=== PATIENT | male | born 1940 | race Caucasian/White ===

== ENCOUNTER 2022-08-20 06:26 | Day surgery (SDC) | payer MEDICARE, MEDICAID ==
[2022-08-20] VITALS (7 sets, daily range): BP systolic 101–123; BP diastolic 52–85
[~2022-08-20] VITALS: Ht 177.8 cm; Wt 117.9 kg
[2022-08-20] MEDS ORDERED: LOSA25TA41 PO (07:08)
[2022-08-20] MEDS ORDERED: METO25TA6 PO (07:08)
[2022-08-20] MEDS ORDERED: APIX5TAB3 PO (07:08)
[2022-08-20] MEDS ORDERED: NITR0.4T48 (07:08)
[2022-08-20] MEDS ORDERED: POTA8CAP20 PO (07:08)
[2022-08-20] MEDS ORDERED: METF-438 PO (07:08)
[2022-08-20] MEDS ORDERED: LASIX PO (07:11)
[2022-08-20] MEDS ORDERED: VITAMIN D3 (07:11)
[2022-08-20] MEDS ORDERED: CYANOCOBALAMIN (07:11)
[2022-08-20 07:37] LABS: BASOPHILS % (AUTO) 0.6 % (0-1); EOSINOPHILS # (AUTO) 0.2 X10'3 (0-0.9); EOSINOPHILS % (AUTO) 2.2 % (0-6); HEMATOCRIT 42.4 % (42.0-52.0); HEMOGLOBIN 14.1 g/dl (14.0-17.9); LYMPHOCYTES # (AUTO) 0.9 X10'3 (1.1-4.8); LYMPHOCYTES % (AUTO) 13.2 % (21-51); MEAN CORPUSCULAR HEMOGLOBIN 36.3 PG (27.0-31.0); MEAN CORPUSCULAR HGB CONC 33.3 g/dL (33.0-36.5); MEAN CORPUSCULAR VOLUME 108.9 FL (78-98); MEAN PLATELET VOLUME 7.5 FL (7.4-10.4); MONOCYTES # (AUTO) 0.6 X10'3 (0-0.9); MONOCYTES % (AUTO) 8.9 % (2-12); NEUTROPHILS # (AUTO) 5.4 X10'3 (1.8-7.7); NEUTROPHILS % (AUTO) 75.1 % (42-75); PLATELET COUNT 169 X10'3 (140-440); RED BLOOD COUNT 3.89 X10'6 (4.70-6.10); RED CELL DISTRIBUTION WIDTH 14.8 % (11.5-14.5); WHITE BLOOD COUNT 7.2 X10'3 (4.5-11.0)
[2022-08-20 07:58] LABS: ALBUMIN 3.9 G/DL (3.4-5.0); ANION GAP 7 (8-16); BLOOD UREA NITROGEN 30 MG/DL (7-18); BUN/CREATININE RATIO 23.1 (10.0-20.0); CALCIUM 9.7 MG/DL (8.5-10.1); CHLORIDE 100 MMOL/L (99-107); GLUCOSE 99 MG/DL (70-104); MAGNESIUM 2.2 MG/DL (1.5-2.4); POTASSIUM 3.9 MMOL/L (3.5-5.1); SODIUM 140 MMOL/L (135-145); TOTAL CARBON DIOXIDE 33.5 MMOL/L (24-32); eGFR 53 ML/MIN
[2022-08-20] MEDS ORDERED: vancomycin 1,500 MG in NS 300ml IV soln IV ONE (08:00)
[2022-08-20] MEDS ORDERED: cefazolin 2gm/D5W 100mL 100 ML IV ONE (08:00)
[2022-08-20] MEDS ORDERED: midazolam 1 mg/ML 2ml injection ONE ×4 (08:32→10:22)
[2022-08-20] MEDS ORDERED: fentaNYL/PF 50MCG/1 ML 2ML syringe ONE (08:32)
[2022-08-20] MEDS ORDERED: vancomycin 1,000mg inj ONE ×2 (08:32→10:04)
[2022-08-20] MEDS ORDERED: LIDOCAINE 2%/EPI 1:100,000 inj. Multi-dose 20 ML VIAL ONE (08:32)
[2022-08-20] MEDS ORDERED: iohexol 350 MG/ML 50ML vial IV ONE ×3 (08:34→10:30)
[2022-08-20] MEDS ORDERED: flumazenil 0.1 mg/ml inj. IV ONE (10:28)
[2022-08-20] MEDS ORDERED: HYDROmorphone 1 mg/ml syringe ONE (10:32)
[2022-08-20] MEDS ORDERED: normal saline 1000ml 600 ML IV SCH (11:50)
== END 2022-08-20 13:40 | disposition home or self-care (01) ==
LOC: SSTAY O 06:26
PROVIDERS: ATTEND Internal Medicine Cardiovascular Disease
DX: Z45.010 Encounter for checking and testing of cardiac pacemaker pulse generator [battery] (principal); I42.0 Dilated cardiomyopathy; I44.2 Atrioventricular block, complete; I25.10 Atherosclerotic heart disease of native coronary artery without angina pectoris; I25.2 Old myocardial infarction; I48.20 Chronic atrial fibrillation, unspecified; I08.1 Rheumatic disorders of both mitral and tricuspid valves; I10 Essential (primary) hypertension; E78.5 Hyperlipidemia, unspecified; E11.9 Type 2 diabetes mellitus without complications; E66.9 Obesity, unspecified; Z68.37 Body mass index [BMI] 37.0-37.9, adult; Z79.899 Other long term (current) drug therapy
CPT/HCPCS: 33229; 36415; 80048; 82948; 83735; 85025; 85610; 93005; 99152; 99153; C1769; C2621; J1170; J2250; J3010; J3370; J3490; J7030; Q9967; 33228; A4615

== ENCOUNTER 2023-02-21 10:04 | Outpatient (CLI) | payer MEDICARE, MEDICAID ==
[~2023-02-21 10:04] MED LIST: APIX5TAB3 PO; ATOR10TA70 PO; FURO20TA4 PO; LOSA25TA41 PO; METF-438 PO; METO25TA6 PO; NITR0.4T48; POTA8CAP20 PO; VITAMIN B12; VITAMIN D3
[2023-02-21 11:09] LABS: APTT 31 SECONDS (22-32); INR 1.2 INR; PROTHROMBIN TIME 12.4 SECONDS (9.0-12.0)
[2023-02-21 11:11] LABS: ALANINE AMINOTRANSFERASE 14 U/L (12-78); ALBUMIN 3.9 G/DL (3.4-5.0); ALBUMIN/GLOBULIN RATIO 0.9 (1.1-1.5); ALKALINE PHOSPHATASE 60 IU/L (46-116); ANION GAP 9 (8-16); ASPARTATE AMINO TRANSFERASE 20 U/L (10-37); BASOPHILS % (AUTO) 0.4 % (0-1); BILIRUBIN,TOTAL 1.4 MG/DL (0.1-1.0); BLOOD UREA NITROGEN 39 MG/DL (7-18); BUN/CREATININE RATIO 30.5 (10.0-20.0); CALCIUM 9.5 MG/DL (8.5-10.1); CHLORIDE 103 MMOL/L (99-107); CREATININE 1.28 MG/DL (0.60-1.10); EOSINOPHILS # (AUTO) 0.1 X10'3 (0-0.9); EOSINOPHILS % (AUTO) 1.4 % (0-6); GLUCOSE 141 MG/DL (70-104); HEMATOCRIT 43.6 % (42.0-52.0); HEMOGLOBIN 14.5 g/dl (14.0-17.9); LYMPHOCYTES # (AUTO) 0.8 X10'3 (1.1-4.8); MEAN CORPUSCULAR HEMOGLOBIN 36.4 PG (27.0-31.0); MEAN CORPUSCULAR HGB CONC 33.3 g/dL (33.0-36.5); MEAN CORPUSCULAR VOLUME 109.2 FL (78-98); MEAN PLATELET VOLUME 7.7 FL (7.4-10.4); MONOCYTES # (AUTO) 0.6 X10'3 (0-0.9); MONOCYTES % (AUTO) 9.1 % (2-12); NEUTROPHILS # (AUTO) 5.4 X10'3 (1.8-7.7); NEUTROPHILS % (AUTO) 78.1 % (42-75); PLATELET COUNT 198 X10'3 (140-440); POTASSIUM 3.8 MMOL/L (3.5-5.1); RED BLOOD COUNT 3.99 X10'6 (4.70-6.10); RED CELL DISTRIBUTION WIDTH 14.5 % (11.5-14.5); SODIUM 142 MMOL/L (135-145); TOTAL PROTEIN 8.3 G/DL (6.4-8.2); eGFR 54 ML/MIN
[2023-04-11] MEDS ORDERED: FURO-150 PO (09:57)
[2023-04-17] MEDS ORDERED: METO-395 PO (12:42)
[2023-04-17] MEDS ORDERED: CYAN-104 PO (12:46)
[2023-04-17] MEDS ORDERED: CHOL200012 PO (12:46)
[2023-04-18] MEDS ORDERED: NITR0.4T51 SL (06:54)
== END 2023-02-21 23:59 | disposition home or self-care (01) ==
LOC: VAS 10:04
PROVIDERS: ATTEND Internal Medicine Cardiovascular Disease
DX: I51.7 Cardiomegaly (principal); R09.89 Other specified symptoms and signs involving the circulatory and respiratory systems; I35.0 Nonrheumatic aortic (valve) stenosis; R06.02 Shortness of breath; I65.29 Occlusion and stenosis of unspecified carotid artery; Z95.1 Presence of aortocoronary bypass graft
CPT/HCPCS: 36415; 71046; 71275; 74174; 75572; 80053; 85025; 85610; 85730; 93880

== ENCOUNTER 2023-05-01 13:12 | Inpatient (IN) | payer MEDICARE, MEDICAID ==
[~2023-05-01] VITALS: Ht 177.8 cm; Wt 105.4 kg
[~2023-05-01 13:12] MED LIST changes: +CHOL200012 PO; +CYAN-104 PO; +FURO-150 PO; -FURO20TA4 PO; +METO-395 PO; -METO25TA6 PO; -NITR0.4T48; +NITR0.4T51 SL; -VITAMIN B12; -VITAMIN D3
[2023-05-01 13:45] LABS: BASOPHILS # (AUTO) 0.1 X10'3 (0-0.2); BASOPHILS % (AUTO) 0.9 % (0-1); EOSINOPHILS # (AUTO) 0.1 X10'3 (0-0.9); EOSINOPHILS % (AUTO) 1.4 % (0-6); HEMATOCRIT 41.3 % (42.0-52.0); HEMOGLOBIN 13.6 g/dl (14.0-17.9); LYMPHOCYTES # (AUTO) 0.8 X10'3 (1.1-4.8); LYMPHOCYTES % (AUTO) 9.1 % (21-51); MEAN CORPUSCULAR HEMOGLOBIN 36.5 PG (27.0-31.0); MEAN CORPUSCULAR HGB CONC 32.9 g/dL (33.0-36.5); MEAN PLATELET VOLUME 10.3 FL (7.4-10.4); MONOCYTES # (AUTO) 0.5 X10'3 (0-0.9); MONOCYTES % (AUTO) 6.4 % (2-12); NEUTROPHILS % (AUTO) 82.2 % (42-75); PLATELET COUNT 85 X10'3 (140-440); RED BLOOD COUNT 3.72 X10'6 (4.70-6.10); RED CELL DISTRIBUTION WIDTH 14.7 % (11.5-14.5); WHITE BLOOD COUNT 8.5 X10'3 (4.5-11.0)
[2023-05-01 14:02] LABS: ALANINE AMINOTRANSFERASE 11 U/L (12-78); ALBUMIN 3.4 G/DL (3.4-5.0); ALBUMIN/GLOBULIN RATIO 0.8 (1.1-1.5); ALKALINE PHOSPHATASE 60 IU/L (46-116); ANION GAP 7 (8-16); ASPARTATE AMINO TRANSFERASE 47 U/L (10-37); BLOOD UREA NITROGEN 68 MG/DL (7-18); BUN/CREATININE RATIO 46.9 (10.0-20.0); CALCIUM 9.2 MG/DL (8.5-10.1); CHLORIDE 102 MMOL/L (99-107); CREATININE 1.45 MG/DL (0.60-1.10); GLUCOSE 100 MG/DL (70-104); SODIUM 140 MMOL/L (135-145); TOTAL PROTEIN 7.6 G/DL (6.4-8.2); eCRCL 42 ML/MIN; eGFR 47 ML/MIN
[2023-05-01 14:10] LABS: PRO BRAIN NATRIURETIC PEPTIDE 6092 PG/ML (0-450)
[2023-05-01 14:26] LABS: POTASSIUM 4.6 MMOL/L (3.5-5.1)
[2023-05-01] MEDS ORDERED: furosemide 10 MG/1 ML 10ml inj IV ONE (15:15)
[2023-05-01] MEDS ORDERED: furosemide inj 100 MG in normal saline 100ml IV soln 90 ML IV SCH (15:25)
[2023-05-01] MEDS ORDERED: mag hydrox/Alum hydrox/simeth 30ml oral suspension PO PRN (16:50)
[2023-05-01] MEDS ORDERED: ondansetron/PF 4mg/2ml inj IV PRN (16:50)
[2023-05-01] MEDS ORDERED: magnesium Cl slow-release 64mg tablet PO PRN (16:50)
[2023-05-01] MEDS ORDERED: potassium Cl 40MEQ/1/2NS 520ml 520 ML IV PRN (16:50)
[2023-05-01] MEDS ORDERED: morphine 2 MG/ML inj. syringe IV PRN ×2 (16:50)
[2023-05-01] MEDS ORDERED: magnesium 4gm in 100ml NS 100 ML IV PRN (16:50)
[2023-05-01] MEDS ORDERED: potassium Cl 20 mEq SR tablet PO PRN (16:50)
[2023-05-01] MEDS ORDERED: acetaminophen 325mg tablet PO PRN (16:50)
[2023-05-01] MEDS ORDERED: magnesium 2GM in 50ml NS 50 ML IV PRN (16:50)
[2023-05-01] MEDS: K and/or MAG REPLACEMENT MC SCH (21:09)
[2023-05-01] MEDS: docusate sod 100mg capsule PO SCH (21:09)
[2023-05-01] MEDS ORDERED: LIDOcaine 2% 10ml TOPICAL JELLY (Urojet) MM ONE (22:10)
[2023-05-01] MEDS ORDERED: LidoCAINE 2% Topical Jelly 11mL syringe MM ONE (22:15)
[2023-05-02] VITALS (35 sets, daily range): BP systolic 78–141; BP diastolic 32–70; PULSE 60–79; RESP 12–23; TEMP 97.6–98.4; O2SAT 82–99
[2023-05-02 01:46] LABS: ALANINE AMINOTRANSFERASE 17 U/L (12-78); ALBUMIN 3.2 G/DL (3.4-5.0); ALBUMIN/GLOBULIN RATIO 0.8 (1.1-1.5); ALKALINE PHOSPHATASE 58 IU/L (46-116); ANION GAP 6 (8-16); ASPARTATE AMINO TRANSFERASE 30 U/L (10-37); BILIRUBIN,TOTAL 1.8 MG/DL (0.1-1.0); BLOOD UREA NITROGEN 64 MG/DL (7-18); BUN/CREATININE RATIO 46.7 (10.0-20.0); CALCIUM 9.1 MG/DL (8.5-10.1); CHLORIDE 103 MMOL/L (99-107); CREATININE 1.37 MG/DL (0.60-1.10); GLUCOSE 136 MG/DL (70-104); POTASSIUM 4.3 MMOL/L (3.5-5.1); SODIUM 141 MMOL/L (135-145); TOTAL CARBON DIOXIDE 32.2 MMOL/L (24-32); TOTAL PROTEIN 7.1 G/DL (6.4-8.2); eCRCL 44 ML/MIN; eGFR 50 ML/MIN
[2023-05-02] MEDS ORDERED: furosemide inj 100 MG in normal saline 100ml IV soln 90 ML IV SCH (03:05)
[2023-05-02] MEDS ORDERED: furosemide inj 1,000 MG in normal saline 250ml IV soln 150 ML IV SCH (03:05)
[2023-05-02] MEDS: furosemide inj 100 MG in normal saline 100ml IV soln 90 ML IV SCH ×2 (04:02→11:27)
[2023-05-02 07:15] LABS: BASOPHILS % (AUTO) 0.3 % (0-1); EOSINOPHILS # (AUTO) 0.1 X10'3 (0-0.9); EOSINOPHILS % (AUTO) 1.5 % (0-6); HEMATOCRIT 39.9 % (42.0-52.0); HEMOGLOBIN 13.1 g/dl (14.0-17.9); LYMPHOCYTES # (AUTO) 0.7 X10'3 (1.1-4.8); MEAN CORPUSCULAR HEMOGLOBIN 36.1 PG (27.0-31.0); MEAN CORPUSCULAR HGB CONC 32.8 g/dL (33.0-36.5); MEAN CORPUSCULAR VOLUME 110.2 FL (78-98); MONOCYTES # (AUTO) 0.7 X10'3 (0-0.9); MONOCYTES % (AUTO) 8.3 % (2-12); NEUTROPHILS # (AUTO) 6.5 X10'3 (1.8-7.7); NEUTROPHILS % (AUTO) 80.9 % (42-75); PLATELET COUNT 81 X10'3 (140-440); RED BLOOD COUNT 3.62 X10'6 (4.70-6.10); RED CELL DISTRIBUTION WIDTH 14.9 % (11.5-14.5)
[2023-05-02 07:40] LABS: ALANINE AMINOTRANSFERASE 11 U/L (12-78); ALBUMIN 3.3 G/DL (3.4-5.0); ALBUMIN/GLOBULIN RATIO 0.8 (1.1-1.5); ALKALINE PHOSPHATASE 58 IU/L (46-116); ANION GAP 5 (8-16); ASPARTATE AMINO TRANSFERASE 33 U/L (10-37); BILIRUBIN,TOTAL 1.9 MG/DL (0.1-1.0); BLOOD UREA NITROGEN 64 MG/DL (7-18); BUN/CREATININE RATIO 48.9 (10.0-20.0); CALCIUM 9.4 MG/DL (8.5-10.1); CHLORIDE 102 MMOL/L (99-107); CHOL/HDL RATIO 2.2 (0.00-4.99); CHOLESTEROL 102 MG/DL (0-200); CREATININE 1.31 MG/DL (0.60-1.10); GLUCOSE 107 MG/DL (70-104); HDL CHOLESTEROL 47 MG/DL (35-60); LDL CHOLESTEROL 44 MG/DL (50-100); POTASSIUM 4.1 MMOL/L (3.5-5.1); PRO BRAIN NATRIURETIC PEPTIDE 6918 PG/ML (0-450); SODIUM 142 MMOL/L (135-145); TOTAL CARBON DIOXIDE 34.6 MMOL/L (24-32); TOTAL PROTEIN 7.4 G/DL (6.4-8.2); TRIGLYCERIDES 71 MG/DL (20-135); eCRCL 46 ML/MIN; eGFR 53 ML/MIN
[2023-05-02] MEDS: docusate sod 100mg capsule PO SCH ×2 (08:00→20:00)
[2023-05-02] MEDS: K and/or MAG REPLACEMENT MC SCH ×2 (08:00→20:00)
[2023-05-02] MEDS: folic acid 1mg tablet PO SCH (08:00)
[2023-05-02] MEDS ORDERED: labetalol 20mg/4ml (5mg/ml) syringe IV PRN (11:50)
[2023-05-02] MEDS ORDERED: LORazepam 2 mg/ml vial IV ONE (11:50)
[2023-05-02] MEDS ORDERED: acetaminophen 1,000mg/100ml IV 100 ML IV ONE (11:50)
[2023-05-02] MEDS ORDERED: proCHLORperazine 10 MG/2 ml inj IV PRN (11:50)
[2023-05-02] MEDS ORDERED: meperidine/PF 25mg/ml syringe IV PRN ×2 (11:50)
[2023-05-02] MEDS ORDERED: morphine 2 MG/ML inj. syringe IV PRN (11:50)
[2023-05-02] MEDS ORDERED: hydrALAZINE 20mg/ml inj. IV PRN (11:50)
[2023-05-02] MEDS ORDERED: morphine 4 MG/ML inj SYRINge IV PRN (11:50)
[2023-05-02] MEDS ORDERED: ringers solution, lacted 1,000 ML IV SCH (11:50)
[2023-05-02] MEDS ORDERED: ondansetron/PF 4mg/2ml inj IV PRN ×2 (11:50→16:30)
[2023-05-02] MEDS ORDERED: protamine sulfate 10mg/ml inj. ONE ×2 (12:54)
[2023-05-02] MEDS ORDERED: phenylephrine inj 50 MG in normal saline 250ml IV solN IV SCH (13:30)
[2023-05-02] MEDS ORDERED: nitroPRUSSIDE (NIPRIDE) (200MCG/ML) 100ML Drip IV SCH (13:30)
[2023-05-02] MEDS ORDERED: LIDOcaine 1% (10mg/ml) 2ml vial ONE (13:43)
[2023-05-02] MEDS ORDERED: protamine sulf. 10mg/ml inj. IV ONE (14:00)
[2023-05-02] MEDS ORDERED: LIDOcaine 1% 30ml preserv. free vial ONE (14:07)
[2023-05-02] MEDS ORDERED: heparin 1,000 UNITS/NS 500ml 1,500 ML ONE (14:07)
[2023-05-02] MEDS ORDERED: iohexol 350MG/ML 100ml bottle IV ONE (14:07)
[2023-05-02] MEDS ORDERED: sevoflurane 250ml liquid IH ONE (14:12)
[2023-05-02] MEDS ORDERED: hydrALAZINE 20mg/ml inj. IV ONE ×2 (14:12→16:21)
[2023-05-02] MEDS ORDERED: rocuronium 10mg/ml inj IV ONE ×2 (14:12→14:47)
[2023-05-02] MEDS ORDERED: midazolam 1 mg/ML 2ml injection ONE (14:45)
[2023-05-02] MEDS ORDERED: ceFAZolin 1000mg inj ONE ×2 (14:46)
[2023-05-02] MEDS ORDERED: 0.9 % SODIUM CHLORIDE 10 ML VIAL ONE ×3 (14:46→16:18)
[2023-05-02] MEDS ORDERED: vancomycin 1,000mg inj ONE ×2 (14:46→16:07)
[2023-05-02] MEDS ORDERED: ePHEDrine 50MG/ML INJ. ONE (14:46)
[2023-05-02] MEDS ORDERED: fentaNYL /PF 50mcg/ml 5ml ampule ONE (14:46)
[2023-05-02] MEDS ORDERED: heparin 1,000unit/ml 10ml vial 10 ML ONE (14:47)
[2023-05-02] MEDS ORDERED: propofol inj 20 ML IV ONE (14:47)
[2023-05-02] MEDS ORDERED: LIDOcaine 2% (20mg/ml) 5ml vial ONE (14:47)
[2023-05-02] MEDS ORDERED: dexamethasone sod phosphate 4mg/ml inj. ONE (14:58)
[2023-05-02] MEDS ORDERED: ondansetron/PF 4mg/2ml inj ONE (14:58)
[2023-05-02] MEDS ORDERED: sugammadex 200mg/2ml injection IV ONE (16:57)
[2023-05-02] MEDS: meperidine/PF 25mg/ml syringe IV PRN ×3 (17:00→19:24)
[2023-05-02 17:18] LABS: ABG BASE EXCESS 6.5 mmol/L (-2.0-2.0); ABG HCO3 32.8 mmol/L (22.0-26.0); ABG PCO2 (T) 53.6 mmHg (35.0-48.0); ABG PH (T) 7.404 (7.340-7.440); ABG PO2 (T) 66.3 mmHg (75.0-100.0); FCOHb 1.5 % (0.0-3.9); FHHb 5.9 % (0.0-5.0); FMetHb 0.3 % (0.0-1.5); FO2Hb 92.3 % (94-97); MODE VENT - SIMV; PATIENT TEMPERATURE 36.6; PEEP 5 cm H2O; RESPIRATORY RATE 8 b/min; TIDAL VOLUME 600 mL; TOTAL HEMOGLOBIN 13.7 G/dl (14.0-17.9)
[2023-05-02] MEDS ORDERED: propofol 1000mg/100ml bottle 100 ML IV ONE (17:32)
[2023-05-02] MEDS: propofol 1000mg/100ml bottle 100 ML IV SCH (17:51)
[2023-05-02] MEDS ORDERED: LidoCAINE 2% Topical Jelly 11mL syringe TOP ONE (18:50)
[2023-05-02 22:34] LABS: ALBUMIN 2.9 G/DL (3.4-5.0); ANION GAP 4 (8-16); BLOOD UREA NITROGEN 60 MG/DL (7-18); CALCIUM 8.8 MG/DL (8.5-10.1); CHLORIDE 104 MMOL/L (99-107); GLUCOSE 157 MG/DL (70-104); POTASSIUM 4.1 MMOL/L (3.5-5.1); SODIUM 143 MMOL/L (135-145); TOTAL CARBON DIOXIDE 34.7 MMOL/L (24-32); eCRCL 41 ML/MIN; eGFR 45 ML/MIN
[2023-05-02] MEDS: phenylephrine inj 50 MG in normal saline 250ml IV solN IV SCH (23:55)
[2023-05-03] VITALS (64 sets, daily range): BP systolic 99–150; BP diastolic 40–68; PULSE 60–88; RESP 10–20; O2SAT 90–96
[2023-05-03] MEDS: ceFAZolin 1GM/D5W- ADD-VANTAGE 50 ML IV SCH ×3 (01:40→16:06)
[2023-05-03] MEDS: vancomycin/NS 1 GM ADD-VANTAGE 250 ML IV SCH ×2 (01:42→09:59)
[2023-05-03 03:45] LABS: BASOPHILS % (AUTO) 0 % (0-1); EOSINOPHILS % (AUTO) 0 % (0-6); HEMATOCRIT 35.5 % (42.0-52.0); LYMPHOCYTES # (AUTO) 0.3 X10'3 (1.1-4.8); LYMPHOCYTES % (AUTO) 2.8 % (21-51); MEAN CORPUSCULAR HEMOGLOBIN 36.9 PG (27.0-31.0); MEAN CORPUSCULAR HGB CONC 33.9 g/dL (33.0-36.5); MEAN PLATELET VOLUME 9.8 FL (7.4-10.4); MONOCYTES # (AUTO) 0.5 X10'3 (0-0.9); MONOCYTES % (AUTO) 4.5 % (2-12); NEUTROPHILS # (AUTO) 9.4 X10'3 (1.8-7.7); NEUTROPHILS % (AUTO) 92.7 % (42-75); PLATELET COUNT 86 X10'3 (140-440); RED BLOOD COUNT 3.26 X10'6 (4.70-6.10); RED CELL DISTRIBUTION WIDTH 14.5 % (11.5-14.5); WHITE BLOOD COUNT 10.1 X10'3 (4.5-11.0)
[2023-05-03] MEDS: propofol 1000mg/100ml bottle 100 ML IV SCH ×4 (03:58→22:09)
[2023-05-03 03:59] LABS: ALANINE AMINOTRANSFERASE 9 U/L (12-78); ALBUMIN 2.7 G/DL (3.4-5.0); ALBUMIN/GLOBULIN RATIO 0.7 (1.1-1.5); ALKALINE PHOSPHATASE 48 IU/L (46-116); ANION GAP 4 (8-16); ASPARTATE AMINO TRANSFERASE 26 U/L (10-37); BILIRUBIN,TOTAL 1.7 MG/DL (0.1-1.0); BLOOD UREA NITROGEN 57 MG/DL (7-18); BUN/CREATININE RATIO 38.8 (10.0-20.0); CALCIUM 8.8 MG/DL (8.5-10.1); CHLORIDE 105 MMOL/L (99-107); CREATININE 1.47 MG/DL (0.60-1.10); GLUCOSE 146 MG/DL (70-104); MAGNESIUM 1.8 MG/DL (1.5-2.4); POTASSIUM 4.1 MMOL/L (3.5-5.1); SODIUM 144 MMOL/L (135-145); TOTAL CARBON DIOXIDE 34.7 MMOL/L (24-32); TOTAL PROTEIN 6.4 G/DL (6.4-8.2); TRIGLYCERIDES 58 MG/DL (20-135); eCRCL 41 ML/MIN; eGFR 46 ML/MIN
[2023-05-03] MEDS: K and/or MAG REPLACEMENT MC SCH ×2 (04:23→20:00)
[2023-05-03 04:38] LABS: ABG BASE EXCESS 8.4 mmol/L (-2.0-2.0); ABG HCO3 32.4 mmol/L (22.0-26.0); ABG OXYGEN SATURATION 96.4 % (94-97); ABG PCO2 (T) 42.1 mmHg (35.0-48.0); ABG PH (T) 7.504 (7.340-7.440); ABG PO2 (T) 78.5 mmHg (75.0-100.0); FCOHb 0.8 % (0.0-3.9); FHHb 3.6 % (0.0-5.0); FMetHb 0.3 % (0.0-1.5); FO2Hb 95.3 % (94-97); MODE VENT - SIMV; PATIENT TEMPERATURE 36.9; PEEP 5 cm H2O; RESPIRATORY RATE 12 b/min; TIDAL VOLUME 600 mL; TOTAL HEMOGLOBIN 12.7 G/dl (14.0-17.9)
[2023-05-03] MEDS: folic acid 1mg tablet PO SCH (07:41)
[2023-05-03] MEDS: docusate sod 100mg capsule PO SCH ×2 (07:41→20:00)
[2023-05-03 12:28] LABS: ALBUMIN 2.8 G/DL (3.4-5.0); ANION GAP 7 (8-16); BLOOD UREA NITROGEN 58 MG/DL (7-18); CALCIUM 8.6 MG/DL (8.5-10.1); CHLORIDE 105 MMOL/L (99-107); CREATININE 1.61 MG/DL (0.60-1.10); GLUCOSE 112 MG/DL (70-104); POTASSIUM 4.2 MMOL/L (3.5-5.1); SODIUM 146 MMOL/L (135-145); TOTAL CARBON DIOXIDE 34.4 MMOL/L (24-32); eCRCL 38 ML/MIN; eGFR 41 ML/MIN
[2023-05-03] MEDS: furosemide inj 100 MG in normal saline 100ml IV soln 90 ML IV SCH (14:44)
[2023-05-03] MEDS: phenylephrine inj 50 MG in normal saline 250ml IV solN IV SCH (14:51)
[2023-05-03 18:58] LABS: ALBUMIN 2.8 G/DL (3.4-5.0); ANION GAP 7 (8-16); BLOOD UREA NITROGEN 55 MG/DL (7-18); BUN/CREATININE RATIO 38.2 (10.0-20.0); CALCIUM 8.7 MG/DL (8.5-10.1); CHLORIDE 107 MMOL/L (99-107); CREATININE 1.44 MG/DL (0.60-1.10); GLUCOSE 99 MG/DL (70-104); POTASSIUM 3.7 MMOL/L (3.5-5.1); SODIUM 148 MMOL/L (135-145); TOTAL CARBON DIOXIDE 33.6 MMOL/L (24-32); eCRCL 42 ML/MIN; eGFR 47 ML/MIN
[2023-05-03] MEDS ORDERED: mineral oil/petrolatum ophthal oint EACHEYE SCH (20:00)
[2023-05-03 23:04] LABS: ALBUMIN 2.8 G/DL (3.4-5.0); ANION GAP 5 (8-16); BLOOD UREA NITROGEN 52 MG/DL (7-18); BUN/CREATININE RATIO 36.1 (10.0-20.0); CALCIUM 8.4 MG/DL (8.5-10.1); CHLORIDE 105 MMOL/L (99-107); CREATININE 1.44 MG/DL (0.60-1.10); GLUCOSE 94 MG/DL (70-104); POTASSIUM 3.4 MMOL/L (3.5-5.1); SODIUM 146 MMOL/L (135-145); TOTAL CARBON DIOXIDE 35.7 MMOL/L (24-32); eCRCL 42 ML/MIN; eGFR 47 ML/MIN
[2023-05-03] MEDS: potassium Cl 20 mEq SR tablet PO PRN (23:16)
[2023-05-04] VITALS (46 sets, daily range): BP systolic 99–162; BP diastolic 39–66; PULSE 60–88; RESP 10–24; O2SAT 86–96
[2023-05-04] MEDS: propofol 1000mg/100ml bottle 100 ML IV SCH ×4 (02:41→10:54)
[2023-05-04 03:53] LABS: ALANINE AMINOTRANSFERASE 8 U/L (12-78); ALBUMIN 2.7 G/DL (3.4-5.0); ALBUMIN/GLOBULIN RATIO 0.8 (1.1-1.5); ALKALINE PHOSPHATASE 46 IU/L (46-116); ANION GAP 6 (8-16); ASPARTATE AMINO TRANSFERASE 27 U/L (10-37); BILIRUBIN,TOTAL 1.9 MG/DL (0.1-1.0); BLOOD UREA NITROGEN 52 MG/DL (7-18); BUN/CREATININE RATIO 35.9 (10.0-20.0); CALCIUM 8.8 MG/DL (8.5-10.1); CHLORIDE 106 MMOL/L (99-107); CREATININE 1.45 MG/DL (0.60-1.10); GLUCOSE 92 MG/DL (70-104); MAGNESIUM 1.9 MG/DL (1.5-2.4); POTASSIUM 3.4 MMOL/L (3.5-5.1); SODIUM 147 MMOL/L (135-145); TOTAL CARBON DIOXIDE 35.2 MMOL/L (24-32); TOTAL PROTEIN 6.2 G/DL (6.4-8.2); TRIGLYCERIDES 104 MG/DL (20-135); eCRCL 42 ML/MIN; eGFR 47 ML/MIN
[2023-05-04 04:14] LABS: ABG BASE EXCESS 11.4 mmol/L (-2.0-2.0); ABG HCO3 35.2 mmol/L (22.0-26.0); ABG OXYGEN SATURATION 94.7 % (94-97); ABG PCO2 (T) 42.7 mmHg (35.0-48.0); ABG PH (T) 7.534 (7.340-7.440); ABG PO2 (T) 67.5 mmHg (75.0-100.0); FHHb 5.2 % (0.0-5.0); FMetHb 0.3 % (0.0-1.5); FO2Hb 93.5 % (94-97); MODE VENT - SIMV; PEEP 5 cm H2O; RESPIRATORY RATE 12 b/min; TIDAL VOLUME 600 mL; TOTAL HEMOGLOBIN 12.8 G/dl (14.0-17.9)
[2023-05-04] MEDS: potassium Cl 20 mEq SR tablet PO PRN (04:50)
[2023-05-04 06:36] LABS: BASOPHILS % (AUTO) 0.1 % (0-1); EOSINOPHILS # (AUTO) 0.1 X10'3 (0-0.9); EOSINOPHILS % (AUTO) 1.3 % (0-6); HEMATOCRIT 35.9 % (42.0-52.0); HEMOGLOBIN 11.9 g/dl (14.0-17.9); LYMPHOCYTES # (AUTO) 1.1 X10'3 (1.1-4.8); LYMPHOCYTES % (AUTO) 9.6 % (21-51); MEAN CORPUSCULAR HGB CONC 33.1 g/dL (33.0-36.5); MEAN CORPUSCULAR VOLUME 108.9 FL (78-98); MEAN PLATELET VOLUME 8.8 FL (7.4-10.4); MONOCYTES % (AUTO) 9.1 % (2-12); NEUTROPHILS # (AUTO) 8.8 X10'3 (1.8-7.7); NEUTROPHILS % (AUTO) 79.9 % (42-75); PLATELET COUNT 88 X10'3 (140-440); RED BLOOD COUNT 3.29 X10'6 (4.70-6.10); RED CELL DISTRIBUTION WIDTH 14.7 % (11.5-14.5); WHITE BLOOD COUNT 11.1 X10'3 (4.5-11.0)
[2023-05-04] MEDS: phenylephrine inj 50 MG in normal saline 250ml IV solN IV SCH ×2 (07:18→23:07)
[2023-05-04] MEDS: K and/or MAG REPLACEMENT MC SCH ×2 (08:00→20:00)
[2023-05-04] MEDS: folic acid 1mg tablet PO SCH (08:16)
[2023-05-04] MEDS: docusate sod 100mg capsule PO SCH ×2 (08:16→21:30)
[2023-05-04] MEDS: aspirin 81mg tab.chew PO SCH (08:21)
[2023-05-04 12:00] LABS: ALBUMIN 2.9 G/DL (3.4-5.0); ANION GAP 7 (8-16); BLOOD UREA NITROGEN 51 MG/DL (7-18); BUN/CREATININE RATIO 35.7 (10.0-20.0); CALCIUM 8.5 MG/DL (8.5-10.1); CHLORIDE 104 MMOL/L (99-107); CREATININE 1.43 MG/DL (0.60-1.10); GLUCOSE 90 MG/DL (70-104); POTASSIUM 3.5 MMOL/L (3.5-5.1); SODIUM 146 MMOL/L (135-145); TOTAL CARBON DIOXIDE 35.3 MMOL/L (24-32); eCRCL 43 ML/MIN; eGFR 48 ML/MIN
[2023-05-04] MEDS ORDERED: ipratropium/albuterol 3ml nebule NEB PRN (12:50)
[2023-05-04 17:02] LABS: ALBUMIN 2.9 G/DL (3.4-5.0); ANION GAP 4 (8-16); BLOOD UREA NITROGEN 48 MG/DL (7-18); BUN/CREATININE RATIO 33.6 (10.0-20.0); CALCIUM 8.8 MG/DL (8.5-10.1); CHLORIDE 106 MMOL/L (99-107); CREATININE 1.43 MG/DL (0.60-1.10); GLUCOSE 116 MG/DL (70-104); POTASSIUM 3.5 MMOL/L (3.5-5.1); SODIUM 147 MMOL/L (135-145); TOTAL CARBON DIOXIDE 36.9 MMOL/L (24-32); eCRCL 43 ML/MIN; eGFR 48 ML/MIN
[2023-05-04] MEDS: methylPREDNISolone sod succ 125mg/2ml vial IV SCH (21:30)
[2023-05-04] MEDS: furosemide inj 100 MG in normal saline 100ml IV soln 90 ML IV SCH (21:34)
[2023-05-05] VITALS (21 sets, daily range): BP systolic 90–139; BP diastolic 41–63; PULSE 60–68; RESP 13–21; TEMP 97.1–99.1; O2SAT 90–94
[2023-05-05 00:21] LABS: ALBUMIN 2.9 G/DL (3.4-5.0); ANION GAP 5 (8-16); BLOOD UREA NITROGEN 48 MG/DL (7-18); BUN/CREATININE RATIO 37.5 (10.0-20.0); CALCIUM 8.9 MG/DL (8.5-10.1); CHLORIDE 105 MMOL/L (99-107); CREATININE 1.28 MG/DL (0.60-1.10); GLUCOSE 129 MG/DL (70-104); POTASSIUM 3.8 MMOL/L (3.5-5.1); SODIUM 146 MMOL/L (135-145); TOTAL CARBON DIOXIDE 36.1 MMOL/L (24-32); eCRCL 48 ML/MIN; eGFR 54 ML/MIN
[2023-05-05] MEDS: K and/or MAG REPLACEMENT MC SCH ×2 (08:00→20:00)
[2023-05-05] MEDS: methylPREDNISolone sod succ 125mg/2ml vial IV SCH ×2 (08:28→20:53)
[2023-05-05] MEDS: docusate sod 100mg capsule PO SCH ×2 (08:31→20:51)
[2023-05-05] MEDS: folic acid 1mg tablet PO SCH (08:31)
[2023-05-05] MEDS: aspirin 81mg tab.chew PO SCH (08:31)
[2023-05-05 12:16] LABS: BASOPHILS % (AUTO) 0.1 % (0-1); EOSINOPHILS % (AUTO) 0 % (0-6); HEMATOCRIT 36.7 % (42.0-52.0); LYMPHOCYTES # (AUTO) 0.3 X10'3 (1.1-4.8); LYMPHOCYTES % (AUTO) 3.9 % (21-51); MEAN CORPUSCULAR HEMOGLOBIN 35.8 PG (27.0-31.0); MEAN CORPUSCULAR HGB CONC 32.8 g/dL (33.0-36.5); MEAN CORPUSCULAR VOLUME 108.9 FL (78-98); MEAN PLATELET VOLUME 9.3 FL (7.4-10.4); MONOCYTES # (AUTO) 0.1 X10'3 (0-0.9); MONOCYTES % (AUTO) 1.2 % (2-12); NEUTROPHILS # (AUTO) 6.4 X10'3 (1.8-7.7); NEUTROPHILS % (AUTO) 94.8 % (42-75); PLATELET COUNT 79 X10'3 (140-440); RED BLOOD COUNT 3.37 X10'6 (4.70-6.10); RED CELL DISTRIBUTION WIDTH 14.8 % (11.5-14.5); WHITE BLOOD COUNT 6.7 X10'3 (4.5-11.0)
[2023-05-05] MEDS ORDERED: MESSAGE TO PHARMACY PO ONE (12:25)
[2023-05-05] MEDS ORDERED: DEXTROSE 15 GM of carb/4 tabs (each vial/BOTTLE has 4 tablets) PO PRN ×2 (12:25)
[2023-05-05] MEDS ORDERED: dextrose 50%-water 50ml dispensing syringe IV PRN ×2 (12:25)
[2023-05-05] MEDS ORDERED: glucagon, human recombinant 1mg kit SUBCUT PRN (12:25)
[2023-05-05 12:30] LABS: APTT 27 SECONDS (22-32); INR 1.1 INR; PROTHROMBIN TIME 12.1 SECONDS (9.0-12.0)
[2023-05-05] MEDS: insulin Lispro (HumaLOG) vial - multi-dose SQ SCH (14:54)
[2023-05-05] MEDS: furosemide inj 100 MG in normal saline 100ml IV soln 90 ML IV SCH (15:46)
[2023-05-05] MEDS: apixaban 5mg tablet PO SCH (20:52)
[2023-05-05] MEDS: insulin glargine (Lantus) pen - multi-dose SQ SCH (21:12)
[2023-05-06] VITALS (18 sets, daily range): BP systolic 91–141; BP diastolic 47–69; PULSE 60–91; RESP 11–20; TEMP 97.4–98.2; O2SAT 90–96
[2023-05-06 06:53] LABS: BASOPHILS % (AUTO) 0.1 % (0-1); EOSINOPHILS % (AUTO) 0 % (0-6); HEMATOCRIT 35.9 % (42.0-52.0); HEMOGLOBIN 11.9 g/dl (14.0-17.9); LYMPHOCYTES # (AUTO) 0.3 X10'3 (1.1-4.8); LYMPHOCYTES % (AUTO) 3.4 % (21-51); MEAN CORPUSCULAR HEMOGLOBIN 36.7 PG (27.0-31.0); MEAN CORPUSCULAR HGB CONC 33.2 g/dL (33.0-36.5); MEAN CORPUSCULAR VOLUME 110.5 FL (78-98); MEAN PLATELET VOLUME 9.6 FL (7.4-10.4); MONOCYTES # (AUTO) 0.3 X10'3 (0-0.9); MONOCYTES % (AUTO) 3.6 % (2-12); NEUTROPHILS # (AUTO) 8.5 X10'3 (1.8-7.7); NEUTROPHILS % (AUTO) 92.9 % (42-75); PLATELET COUNT 90 X10'3 (140-440); RED BLOOD COUNT 3.25 X10'6 (4.70-6.10); WHITE BLOOD COUNT 9.2 X10'3 (4.5-11.0)
[2023-05-06] MEDS: methylPREDNISolone sod succ 125mg/2ml vial IV SCH (07:27)
[2023-05-06] MEDS: folic acid 1mg tablet PO SCH (07:30)
[2023-05-06] MEDS: apixaban 5mg tablet PO SCH ×2 (07:30→19:57)
[2023-05-06] MEDS: docusate sod 100mg capsule PO SCH ×2 (07:30→19:57)
[2023-05-06] MEDS: K and/or MAG REPLACEMENT MC SCH ×2 (08:00→20:00)
[2023-05-06] MEDS: insulin Lispro (HumaLOG) vial - multi-dose SQ SCH ×3 (09:10→19:45)
[2023-05-06] MEDS: aspirin 81mg tab.chew PO SCH (09:11)
[2023-05-06 12:52] LABS: ALANINE AMINOTRANSFERASE 16 U/L (12-78); ALBUMIN 3.1 G/DL (3.4-5.0); ALBUMIN/GLOBULIN RATIO 0.8 (1.1-1.5); ALKALINE PHOSPHATASE 50 IU/L (46-116); ANION GAP 3 (8-16); ASPARTATE AMINO TRANSFERASE 34 U/L (10-37); BILIRUBIN,TOTAL 1.7 MG/DL (0.1-1.0); BLOOD UREA NITROGEN 58 MG/DL (7-18); CALCIUM 9.1 MG/DL (8.5-10.1); CHLORIDE 101 MMOL/L (99-107); CREATININE 1.45 MG/DL (0.60-1.10); GLUCOSE 193 MG/DL (70-104); POTASSIUM 4.1 MMOL/L (3.5-5.1); SODIUM 140 MMOL/L (135-145); TOTAL CARBON DIOXIDE 36.2 MMOL/L (24-32); TOTAL PROTEIN 7.1 G/DL (6.4-8.2); eCRCL 42 ML/MIN; eGFR 47 ML/MIN
[2023-05-06] MEDS ORDERED: magnesium hydroxide 30ml (MOM) UD suspension PO ONE (15:00)
[2023-05-06] MEDS ORDERED: magnesium hydroxide 30ml (MOM) UD suspension PO PRN (15:10)
[2023-05-06] MEDS: methylPREDNISolone sod succ/PF 40mg inj. IV SCH (19:54)
[2023-05-06] MEDS: insulin glargine (Lantus) pen - multi-dose SQ SCH (21:58)
[2023-05-07 00:13] VITALS: PULSE 61; RESP 18; O2SAT 92
[2023-05-07 04:01] VITALS: PULSE 61; RESP 18; O2SAT 92
[2023-05-07 06:00] VITALS: BP 153/65; PULSE 60; RESP 16; TEMP 98.4; O2SAT 93
[2023-05-07 07:02] LABS: BASOPHILS % (AUTO) 0.1 % (0-1); EOSINOPHILS % (AUTO) 0 % (0-6); HEMATOCRIT 34.7 % (42.0-52.0); HEMOGLOBIN 11.4 g/dl (14.0-17.9); LYMPHOCYTES # (AUTO) 0.5 X10'3 (1.1-4.8); LYMPHOCYTES % (AUTO) 3.8 % (21-51); MEAN CORPUSCULAR HEMOGLOBIN 35.7 PG (27.0-31.0); MEAN CORPUSCULAR HGB CONC 32.7 g/dL (33.0-36.5); MEAN CORPUSCULAR VOLUME 109.2 FL (78-98); MEAN PLATELET VOLUME 9.4 FL (7.4-10.4); MONOCYTES # (AUTO) 0.6 X10'3 (0-0.9); MONOCYTES % (AUTO) 4.6 % (2-12); NEUTROPHILS # (AUTO) 11.2 X10'3 (1.8-7.7); NEUTROPHILS % (AUTO) 91.5 % (42-75); PLATELET COUNT 102 X10'3 (140-440); RED BLOOD COUNT 3.18 X10'6 (4.70-6.10); RED CELL DISTRIBUTION WIDTH 14.9 % (11.5-14.5); WHITE BLOOD COUNT 12.2 X10'3 (4.5-11.0)
[2023-05-07 07:13] VITALS: BP 125/43; PULSE 66; RESP 16; TEMP 97.4; O2SAT 89
[2023-05-07 07:33] LABS: ALANINE AMINOTRANSFERASE 46 U/L (12-78); ALBUMIN/GLOBULIN RATIO 0.8 (1.1-1.5); ALKALINE PHOSPHATASE 47 IU/L (46-116); ANION GAP 1 (8-16); ASPARTATE AMINO TRANSFERASE 54 U/L (10-37); BILIRUBIN,TOTAL 1.6 MG/DL (0.1-1.0); BLOOD UREA NITROGEN 70 MG/DL (7-18); BUN/CREATININE RATIO 57.4 (10.0-20.0); CALCIUM 8.8 MG/DL (8.5-10.1); CHLORIDE 102 MMOL/L (99-107); CREATININE 1.22 MG/DL (0.60-1.10); GLUCOSE 115 MG/DL (70-104); POTASSIUM 4.1 MMOL/L (3.5-5.1); SODIUM 141 MMOL/L (135-145); TOTAL CARBON DIOXIDE 38.5 MMOL/L (24-32); TOTAL PROTEIN 6.7 G/DL (6.4-8.2); eCRCL 50 ML/MIN; eGFR 57 ML/MIN
[2023-05-07 08:00] VITALS: RESP 16; O2SAT 89
[2023-05-07] MEDS: K and/or MAG REPLACEMENT MC SCH (08:00)
[2023-05-07] MEDS: insulin Lispro (HumaLOG) vial - multi-dose SQ SCH (09:18)
[2023-05-07] MEDS: methylPREDNISolone sod succ/PF 40mg inj. IV SCH (09:20)
[2023-05-07] MEDS: aspirin 81mg tab.chew PO SCH (09:25)
[2023-05-07] MEDS: apixaban 5mg tablet PO SCH (09:25)
[2023-05-07] MEDS: folic acid 1mg tablet PO SCH (09:25)
[2023-05-07] MEDS: docusate sod 100mg capsule PO SCH (09:25)
[2023-05-07 11:00] VITALS: BP 140/64; PULSE 81; RESP 18; TEMP 97.1; O2SAT 91
[2023-05-07] MEDS ORDERED: FURO-150 PO (11:02)
[2023-05-07] MEDS ORDERED: ASPI81TA53 PO (11:02)
== END 2023-05-07 13:45 | disposition home health service (06) | DRG 266 ==
LOC: ER 13:12 → ED HOLD 16:58 → PCU 3S 05-02 04:21 → CICU 2S 05-02 19:37 → PCU 3S 05-05 05:01
PROVIDERS: ADMIT Family Medicine; ATTEND Family Medicine
PROC: B41G1ZZ Fluoroscopy of Left Lower Extremity Arteries using Low Osmolar Contrast (ICD-10-PCS; 2023-05-02)
PROC: 30233N1 Transfusion of Nonautologous Red Blood Cells into Peripheral Vein, Percutaneous Approach (ICD-10-PCS; 2023-05-02)
PROC: 5A1945Z Respiratory Ventilation, 24-96 Consecutive Hours (ICD-10-PCS; 2023-05-02)
PROC: 0BH17EZ Insertion of Endotracheal Airway into Trachea, Via Natural or Artificial Opening (ICD-10-PCS; 2023-05-02)
PROC: 03HY32Z Insertion of Monitoring Device into Upper Artery, Percutaneous Approach (ICD-10-PCS; 2023-05-02)
PROC: B24BZZZ Ultrasonography of Heart with Aorta (ICD-10-PCS; 2023-05-02)
PROC: 02RF38Z Replacement of Aortic Valve with Zooplastic Tissue, Percutaneous Approach (ICD-10-PCS; principal; 2023-05-02 14:16)
DX: T82.02XA Displacement of heart valve prosthesis, initial encounter (principal); Z00.6 Encounter for examination for normal comparison and control in clinical research program; I50.33 Acute on chronic diastolic (congestive) heart failure; J96.21 Acute and chronic respiratory failure with hypoxia; E87.0 Hyperosmolality and hypernatremia; J44.1 Chronic obstructive pulmonary disease with (acute) exacerbation; N17.9 Acute kidney failure, unspecified; I13.0 Hypertensive heart and chronic kidney disease with heart failure and stage 1 through stage 4 chronic kidney disease, or unspecified chronic kidney disease; I27.20 Pulmonary hypertension, unspecified; I35.2 Nonrheumatic aortic (valve) stenosis with insufficiency; J44.9 Chronic obstructive pulmonary disease, unspecified; N18.30 Chronic kidney disease, stage 3 unspecified; D69.6 Thrombocytopenia, unspecified; D53.9 Nutritional anemia, unspecified; I25.10 Atherosclerotic heart disease of native coronary artery without angina pectoris; D72.829 Elevated white blood cell count, unspecified; I48.91 Unspecified atrial fibrillation; Z79.01 Long term (current) use of anticoagulants; Z79.84 Long term (current) use of oral hypoglycemic drugs; Z79.899 Other long term (current) drug therapy; Z95.818 Presence of other cardiac implants and grafts
CPT/HCPCS: 33361; 36415; 36600; 71045; 76937; 80048; 80053; 80061; 82803; 82948; 83735; 83880; 84478; 84484; 85018; 85025; 85347; 85610; 85730; 86885; 86900; 86901; 86920; 87070; 87081; 93005; 93308; 93325; 93355; 94002; 94003; 94640; 94660; 94760; 94799; 97110; 97161; 97530; 99285; A4349; A4618; A4649; A5200; A6258; A6449; C1729; C1756; C1758; C1760; C1769; C1894; G0378; J0360; J0690; J1100; J1644; J1815; J1940; J2060; J2175; J2250; J2370; J2405; J2704; J2720; J2920; J2930; J3010; J3370; J3490; J7040; J7050; P9016; Q9967

== ENCOUNTER 2023-05-14 17:16 | Inpatient (IN) | payer MEDICARE, MEDICAID ==
[~2023-05-14] VITALS: Ht 188 cm; Wt 127.3 kg
[~2023-05-14 17:16] MED LIST changes: +ASPI81TA53 PO
[2023-05-14] MEDS: fentaNYL/PF 50MCG/1 ML 2ML syringe IV ONE ×3 (17:33→23:50)
[2023-05-14] MEDS: normal saline 1000ml 1,000 ML IV ONE (17:34)
[2023-05-14] MEDS: normal saline 1000ML IV soln IVB ONE (17:48)
[2023-05-14] MEDS: ipratropium/albuterol 3ml nebule NEB ONE (17:55)
[2023-05-14 18:08] LABS: BASOPHILS # (AUTO) 0.1 X10'3 (0-0.2); BASOPHILS % (AUTO) 0.3 % (0-1); EOSINOPHILS # (AUTO) 0.1 X10'3 (0-0.9); EOSINOPHILS % (AUTO) 0.4 % (0-6); WHITE BLOOD COUNT 21.2 X10'3 (4.5-11.0)
[2023-05-14] MEDS: LORazepam 2 mg/ml vial IV ONE (18:09)
[2023-05-14 18:11] LABS: LYMPHOCYTES # (AUTO) 1.5 X10'3 (1.1-4.8); MEAN CORPUSCULAR HEMOGLOBIN 36.2 PG (27.0-31.0); MEAN CORPUSCULAR HGB CONC 29.4 g/dL (33.0-36.5); MEAN CORPUSCULAR VOLUME 123.4 FL (78-98); MEAN PLATELET VOLUME 9.5 FL (7.4-10.4); MONOCYTES # (AUTO) 1.7 X10'3 (0-0.9); MONOCYTES % (AUTO) 8.1 % (2-12); NEUTROPHILS # (AUTO) 17.8 X10'3 (1.8-7.7); NEUTROPHILS % (AUTO) 84.2 % (42-75); PLATELET COUNT 108 X10'3 (140-440); RED BLOOD COUNT 1.24 X10'6 (4.70-6.10); RED CELL DISTRIBUTION WIDTH 22.7 % (11.5-14.5)
[2023-05-14 18:15] VITALS: PULSE 60; RESP 24; O2SAT 98
[2023-05-14 18:21] VITALS: PULSE 62; RESP 26
[2023-05-14 18:22] LABS: ALANINE AMINOTRANSFERASE 27 U/L (12-78); ALBUMIN 2.3 G/DL (3.4-5.0); ALBUMIN/GLOBULIN RATIO 0.9 (1.1-1.5); ALKALINE PHOSPHATASE 39 IU/L (46-116); ANION GAP 12 (8-16); ASPARTATE AMINO TRANSFERASE 27 U/L (10-37); BILIRUBIN,TOTAL 1.2 MG/DL (0.1-1.0); BLOOD UREA NITROGEN 98 MG/DL (7-18); BUN/CREATININE RATIO 54.4 (10.0-20.0); CALCIUM 7.8 MG/DL (8.5-10.1); CHLORIDE 102 MMOL/L (99-107); GLUCOSE 136 MG/DL (70-104); POTASSIUM 4.8 MMOL/L (3.5-5.1); SODIUM 139 MMOL/L (135-145); TOTAL CARBON DIOXIDE 24.9 MMOL/L (24-32); eCRCL 38 ML/MIN; eGFR 36 ML/MIN
[2023-05-14 18:24] LABS: HEMOGLOBIN 4.5 g/dl (14.0-17.9)
[2023-05-14 18:25] LABS: HEMATOCRIT 15.2 % (42.0-52.0)
[2023-05-14] MEDS ORDERED: pantoprazole 40mg IV 80 MG in normal saline 100ml IV soln 100 ML IV ONE (18:30)
[2023-05-14 18:32] LABS: MAGNESIUM 2.4 MG/DL (1.5-2.4); PRO BRAIN NATRIURETIC PEPTIDE 2907 PG/ML (0-450)
[2023-05-14 19:30] LABS: APTT 23 SECONDS (22-32); INR 1.3 INR; PROTHROMBIN TIME 13.3 SECONDS (9.0-12.0)
[2023-05-14] MEDS ORDERED: morphine 2 MG/ML inj. syringe IV PRN (19:45)
[2023-05-14] MEDS ORDERED: potassium Cl 40MEQ/1/2NS 520ml 520 ML IV PRN (19:45)
[2023-05-14] MEDS ORDERED: magnesium Cl slow-release 64mg tablet PO PRN (19:45)
[2023-05-14] MEDS ORDERED: magnesium 2GM in 50ml NS 50 ML IV PRN (19:45)
[2023-05-14] MEDS ORDERED: magnesium 4gm in 100ml NS 100 ML IV PRN (19:45)
[2023-05-14] MEDS ORDERED: normal saline 1000ml 1,000 ML IV SCH (19:45)
[2023-05-14] MEDS ORDERED: acetaminophen 325mg tablet PO PRN ×2 (19:45)
[2023-05-14] MEDS ORDERED: HYDROcodone/acetaminophen 10/325mg tab PO PRN (19:45)
[2023-05-14] MEDS ORDERED: potassium Cl 20 mEq SR tablet PO PRN ×2 (19:45)
[2023-05-14] MEDS ORDERED: ondansetron/PF 4mg/2ml inj IV PRN (19:45)
[2023-05-14] MEDS ORDERED: HYDROcodone/acetaminophen 5mg/325mg tablet PO PRN (19:45)
[2023-05-14] MEDS ORDERED: pantoprazole 40MG/NS 100ML BAG 100 ML IV ONE (20:00)
[2023-05-14] MEDS: pantoprazole 40 MG vial IV SCH (20:00)
[2023-05-14] MEDS ORDERED: K and/or MAG REPLACEMENT MC SCH (20:00)
[2023-05-14] MEDS: docusate sod 100mg capsule PO SCH (20:00)
[2023-05-14] MEDS: pantoprazole 40 MG vial IV ONE (20:17)
[2023-05-14] MEDS ORDERED: glucagon, human recombinant 1mg kit SUBCUT PRN (20:55)
[2023-05-14] MEDS ORDERED: DEXTROSE 15 GM of carb/4 tabs (each vial/BOTTLE has 4 tablets) PO PRN ×2 (20:55)
[2023-05-14] MEDS: MESSAGE TO PHARMACY PO ONE (20:55)
[2023-05-14] MEDS ORDERED: insulin Lispro (HumaLOG) vial - multi-dose SQ SCH (20:55)
[2023-05-14] MEDS ORDERED: dextrose 50%-water 50ml dispensing syringe IV PRN ×2 (20:55)
[2023-05-14] MEDS ORDERED: insulin glargine (Lantus) pen - multi-dose SQ SCH (21:00)
[2023-05-14] MEDS: pantoprazole 40MG/NS 100ML BAG 100 ML IV STA (21:35)
[2023-05-14] MEDS: piperacillin/tazo 3.375gm/50ml 50 ML IV ONE (21:39)
[2023-05-14] MEDS ORDERED: HYDROmorphone 2mg tablet PO PRN (21:50)
[2023-05-14] MEDS ORDERED: pantoprazole 40mg IV 80 MG in normal saline 100ml IV soln 100 ML IV SCH (21:50)
[2023-05-14] MEDS: morphine 2 MG/ML inj. syringe IV PRN (22:11)
[2023-05-14] MEDS: NORepinephrine 8mg/ 250ml NS 250 ML IV PRN (22:42)
[2023-05-14] MEDS: KCENTRA PCC 500 UNIT/20 ML IV ONE (22:59)
[2023-05-14] MEDS ORDERED: HYDROmorphone inj. 0.5 MG/0.5 ML DISP.SYRIN IV SCH (23:10)
[2023-05-14] MEDS: HYDROmorphone inj. 0.5 MG/0.5 ML DISP.SYRIN IV ONE (23:13)
[2023-05-14 23:23] LABS: MEAN CORPUSCULAR HEMOGLOBIN 32.9 PG (27.0-31.0); MEAN CORPUSCULAR HGB CONC 30.8 g/dL (33.0-36.5); MEAN CORPUSCULAR VOLUME 106.8 FL (78-98); MEAN PLATELET VOLUME 9.3 FL (7.4-10.4); PLATELET COUNT 87 X10'3 (140-440); RED BLOOD COUNT 2.05 X10'6 (4.70-6.10); RED CELL DISTRIBUTION WIDTH 22.8 % (11.5-14.5)
[2023-05-14 23:27] LABS: NUCLEATED RED BLOOD CELLS 1 /100WBC (0-0); TOTAL CELLS COUNTED 100
[2023-05-14 23:28] LABS: ANISOCYTOSIS 3+; PLATELET ESTIMATE DECREASED
[2023-05-14 23:29] LABS: ELLIPTOCYTES FEW
[2023-05-14 23:30] LABS: POLYCHROMASIA 2+
[2023-05-14 23:42] LABS: ABG BASE EXCESS -2.5 mmol/L (-2.0-2.0); ABG HCO3 23.3 mmol/L (22.0-26.0); ABG OXYGEN SATURATION 96.6 % (94-97); ABG PCO2 (T) 44.3 mmHg (35.0-48.0); ABG PH (T) 7.337 (7.340-7.440); ABG PO2 (T) 92.7 mmHg (75.0-100.0); FCOHb 0.3 % (0.0-3.9); FHHb 3.4 % (0.0-5.0); FMetHb 0.3 % (0.0-1.5); MODE MASK - NRB; PATIENT TEMPERATURE 36.6; TOTAL HEMOGLOBIN 8.1 G/dl (14.0-17.9)
[2023-05-14 23:43] LABS: WHITE BLOOD COUNT 31.1 X10'3 (4.5-11.0)
[2023-05-14 23:44] LABS: HEMATOCRIT 21.9 % (42.0-52.0); HEMOGLOBIN 6.8 g/dl (14.0-17.9)
[2023-05-15] VITALS (43 sets, daily range): BP systolic 95–146; BP diastolic 25–82; PULSE 60–81; RESP 12–24; TEMP 99.3–99.7; O2SAT 91–100
[2023-05-15] MEDS: ketamine 50 mg/ml 10ml vial IV ONE (00:42)
[2023-05-15] MEDS: pantoprazole 40 MG vial IV ONE ×2 (01:57→07:37)
[2023-05-15 02:08] LABS: OCCULT BLOOD STOOL POSITIVE (Neg)
[2023-05-15] MEDS: HYDROmorphone inj. 0.5 MG/0.5 ML DISP.SYRIN IV PRN (05:17)
[2023-05-15] MEDS: piperacillin/tazo 3.375gm/50ml 50 ML IV SCH (05:37)
[2023-05-15 06:20] LABS: BASOPHILS % (AUTO) 0.1 % (0-1); EOSINOPHILS % (AUTO) 0 % (0-6); LYMPHOCYTES # (AUTO) 1.3 X10'3 (1.1-4.8); NEUTROPHILS # (AUTO) 35.1 X10'3 (1.8-7.7)
[2023-05-15 06:21] LABS: HEMATOCRIT 34.3 % (42.0-52.0); HEMOGLOBIN 11.3 g/dl (14.0-17.9); LYMPHOCYTES % (AUTO) 3.3 % (21-51); MEAN CORPUSCULAR HEMOGLOBIN 32.7 PG (27.0-31.0); MEAN CORPUSCULAR VOLUME 99.1 FL (78-98); MEAN PLATELET VOLUME 8.5 FL (7.4-10.4); MONOCYTES # (AUTO) 1.7 X10'3 (0-0.9); MONOCYTES % (AUTO) 4.5 % (2-12); NEUTROPHILS % (AUTO) 92.1 % (42-75); PLATELET COUNT 114 X10'3 (140-440); RED BLOOD COUNT 3.46 X10'6 (4.70-6.10); RED CELL DISTRIBUTION WIDTH 19.2 % (11.5-14.5)
[2023-05-15 06:26] LABS: WHITE BLOOD COUNT 38.1 X10'3 (4.5-11.0)
[2023-05-15 06:28] LABS: ALANINE AMINOTRANSFERASE 22 U/L (12-78); ALBUMIN 2.4 G/DL (3.4-5.0); ALBUMIN/GLOBULIN RATIO 0.8 (1.1-1.5); ALKALINE PHOSPHATASE 39 IU/L (46-116); ANION GAP 8 (8-16); ASPARTATE AMINO TRANSFERASE 32 U/L (10-37); BILIRUBIN,TOTAL 4.2 MG/DL (0.1-1.0); BLOOD UREA NITROGEN 95 MG/DL (7-18); BUN/CREATININE RATIO 49.7 (10.0-20.0); CALCIUM 6.4 MG/DL (8.5-10.1); CHLORIDE 105 MMOL/L (99-107); CREATININE 1.91 MG/DL (0.60-1.10); GLUCOSE 168 MG/DL (70-104); MAGNESIUM 2.2 MG/DL (1.5-2.4); POTASSIUM 5.3 MMOL/L (3.5-5.1); SODIUM 138 MMOL/L (135-145); TOTAL CARBON DIOXIDE 25.1 MMOL/L (24-32); TOTAL PROTEIN 5.3 G/DL (6.4-8.2); eCRCL 36 ML/MIN; eGFR 34 ML/MIN
[2023-05-15] MEDS ORDERED: pantoprazole 40mg IV 80 MG in normal saline 100ml IV soln 100 ML IV ONE (07:00)
[2023-05-15 07:06] LABS: ANISOCYTOSIS 2+; NUCLEATED RED BLOOD CELLS 2 /100WBC (0-0); PLATELET ESTIMATE DECREASED; TOTAL CELLS COUNTED 100
[2023-05-15 07:08] LABS: POLYCHROMASIA 2+
[2023-05-15 07:09] LABS: BURR CELLS FEW
[2023-05-15] MEDS ORDERED: rocuronium 10mg/ml inj IV ONE ×2 (08:22→09:35)
[2023-05-15] MEDS ORDERED: sevoflurane 250ml liquid IH ONE (08:22)
[2023-05-15 08:28] LABS: APTT 27 SECONDS (22-32); INR 1.2 INR; PROTHROMBIN TIME 12.4 SECONDS (9.0-12.0)
[2023-05-15] MEDS ORDERED: fentaNYL/PF 50MCG/1 ML 2ML syringe ONE (09:14)
[2023-05-15] MEDS ORDERED: midazolam 1 mg/ML 2ml injection ONE (09:14)
[2023-05-15] MEDS ORDERED: fentaNYL/PF 50MCG/1 ML 2ML syringe IV PRN (09:30)
[2023-05-15] MEDS ORDERED: midazolam 100mg in NS 100ml 100 ML IV PRN (09:30)
[2023-05-15] MEDS ORDERED: propofol inj 20 ML IV ONE (09:35)
[2023-05-15] MEDS ORDERED: phenylephrine 10mg/ml inj. -priapism dosing ONE (09:35)
[2023-05-15] MEDS ORDERED: ePHEDrine 50MG/ML INJ. ONE (09:35)
[2023-05-15] MEDS ORDERED: LIDOcaine 2% (20mg/ml) 5ml vial ONE (09:35)
[2023-05-15] MEDS ORDERED: 0.9 % SODIUM CHLORIDE 10 ML VIAL ONE (09:35)
[2023-05-15] MEDS: midazolam 1 mg/ML 2ml injection IV ONE (10:10)
[2023-05-15] MEDS: propofol 1000mg/100ml bottle 100 ML IV SCH ×2 (10:10→13:34)
[2023-05-15] MEDS: FENTANYL-0.9 % NACL/PF 100 ML IV PRN (10:31)
[2023-05-15 11:02] LABS: ABG BASE EXCESS -5.5 mmol/L (-2.0-2.0); ABG HCO3 19.7 mmol/L (22.0-26.0); ABG OXYGEN SATURATION 93.4 % (94-97); ABG PCO2 (T) 36.6 mmHg (35.0-48.0); ABG PH (T) 7.346 (7.340-7.440); ABG PO2 (T) 63.6 mmHg (75.0-100.0); FCOHb 1.8 % (0.0-3.9); FHHb 6.5 % (0.0-5.0); FO2Hb 91.7 % (94-97); MODE VENT - AC; PATIENT TEMPERATURE 36.3; PEEP 5 cm H2O; RESPIRATORY RATE 14 b/min; TIDAL VOLUME 450 mL; TOTAL HEMOGLOBIN 12.9 G/dl (14.0-17.9)
[2023-05-15] MEDS: ringers solution, lacted 1,000 ML IV ONE ×2 (11:25→12:06)
[2023-05-15] MEDS ORDERED: vasopressin inj. 40 UNIT in dextrose 5%-water 50ml 38 ML IV SCH (12:00)
[2023-05-15] MEDS: pantoprazole 40MG/NS 100ML BAG 100 ML IV SCH (12:24)
[2023-05-15] MEDS: vasopressin inj. 40 UNIT in normal saline 50ml IV soln 38 ML IV SCH (12:43)
[2023-05-15] MEDS ORDERED: FENTANYL-0.9 % NACL/PF 100 ML IV PRN (12:49)
[2023-05-15] MEDS: ringers solution, lacted 1,000 ML IV SCH (13:05)
[2023-05-15 14:09] LABS: ABG BASE EXCESS -4.3 mmol/L (-2.0-2.0); ABG HCO3 20.7 mmol/L (22.0-26.0); ABG OXYGEN SATURATION 94.1 % (94-97); ABG PCO2 (T) 36.3 mmHg (35.0-48.0); ABG PO2 (T) 68.2 mmHg (75.0-100.0); FCOHb 0.3 % (0.0-3.9); FHHb 5.9 % (0.0-5.0); FMetHb 0.2 % (0.0-1.5); FO2Hb 93.6 % (94-97); MODE VENT - AC/PRVC; PEEP 5 cm H2O; RESPIRATORY RATE 14 b/min; TIDAL VOLUME 450 mL; TOTAL HEMOGLOBIN 11.4 G/dl (14.0-17.9)
[2023-05-15 14:23] LABS: EOSINOPHILS % (AUTO) 0 % (0-6); HEMATOCRIT 31.9 % (42.0-52.0); HEMOGLOBIN 10.5 g/dl (14.0-17.9); MEAN CORPUSCULAR HEMOGLOBIN 32.2 PG (27.0-31.0)
[2023-05-15 14:24] LABS: BASOPHILS % (AUTO) 0.1 % (0-1); LYMPHOCYTES # (AUTO) 0.9 X10'3 (1.1-4.8); LYMPHOCYTES % (AUTO) 3.8 % (21-51); MEAN CORPUSCULAR VOLUME 97.4 FL (78-98); MEAN PLATELET VOLUME 8.7 FL (7.4-10.4); MONOCYTES % (AUTO) 4.2 % (2-12); NEUTROPHILS # (AUTO) 22.9 X10'3 (1.8-7.7); NEUTROPHILS % (AUTO) 91.9 % (42-75); PLATELET COUNT 68 X10'3 (140-440); RED BLOOD COUNT 3.28 X10'6 (4.70-6.10); RED CELL DISTRIBUTION WIDTH 19.2 % (11.5-14.5)
[2023-05-15 14:39] LABS: ALANINE AMINOTRANSFERASE 20 U/L (12-78); ALBUMIN 1.9 G/DL (3.4-5.0); ALBUMIN/GLOBULIN RATIO 0.8 (1.1-1.5); ALKALINE PHOSPHATASE 33 IU/L (46-116); ANION GAP 11 (8-16); ASPARTATE AMINO TRANSFERASE 34 U/L (10-37); BILIRUBIN,TOTAL 3.7 MG/DL (0.1-1.0); BLOOD UREA NITROGEN 82 MG/DL (7-18); CALCIUM 6.7 MG/DL (8.5-10.1); CHLORIDE 108 MMOL/L (99-107); CREATININE 1.64 MG/DL (0.60-1.10); GLUCOSE 181 MG/DL (70-104); MAGNESIUM 2.1 MG/DL (1.5-2.4); PHOSPHORUS 4.5 MG/DL (2.3-4.5); POTASSIUM 4.8 MMOL/L (3.5-5.1); SODIUM 140 MMOL/L (135-145); TOTAL CARBON DIOXIDE 21.5 MMOL/L (24-32); TOTAL PROTEIN 4.4 G/DL (6.4-8.2); eCRCL 42 ML/MIN; eGFR 41 ML/MIN
[2023-05-15] MEDS ORDERED: FURO20TA4 PO (14:53)
[2023-05-15] MEDS ORDERED: ASPI-1265 PO (14:53)
[2023-05-16] VITALS (38 sets, daily range): BP systolic 98–154; BP diastolic 40–70; PULSE 60–77; RESP 13–23; O2SAT 91–98
[2023-05-16] MEDS ORDERED: DEXTROSE 15 GM of carb/4 tabs (each vial/BOTTLE has 4 tablets) PO PRN ×2
[2023-05-16] MEDS ORDERED: glucagon, human recombinant 1mg kit SUBCUT PRN
[2023-05-16] MEDS ORDERED: dextrose 50%-water 50ml dispensing syringe IV PRN
[2023-05-16] MEDS: MESSAGE TO PHARMACY PO ONE (00:37)
[2023-05-16] MEDS: NORepinephrine 8mg/ 250ml NS 250 ML IV PRN (00:48)
[2023-05-16] MEDS: insulin glargine (Lantus) pen - multi-dose SQ SCH (00:54)
[2023-05-16 03:06] LABS: EOSINOPHILS % (AUTO) 0.1 % (0-6); LYMPHOCYTES % (AUTO) 3.2 % (21-51); MONOCYTES # (AUTO) 1.1 X10'3 (0-0.9); NEUTROPHILS # (AUTO) 18.6 X10'3 (1.8-7.7)
[2023-05-16 03:08] LABS: BASOPHILS % (AUTO) 0 % (0-1); HEMATOCRIT 30.7 % (42.0-52.0); HEMOGLOBIN 10.2 g/dl (14.0-17.9); LYMPHOCYTES # (AUTO) 0.6 X10'3 (1.1-4.8); MEAN CORPUSCULAR HEMOGLOBIN 32.5 PG (27.0-31.0); MEAN CORPUSCULAR HGB CONC 33.1 g/dL (33.0-36.5); MEAN PLATELET VOLUME 9.3 FL (7.4-10.4); MONOCYTES % (AUTO) 5.2 % (2-12); NEUTROPHILS % (AUTO) 91.5 % (42-75); PLATELET COUNT 60 X10'3 (140-440); RED BLOOD COUNT 3.13 X10'6 (4.70-6.10); RED CELL DISTRIBUTION WIDTH 19.2 % (11.5-14.5); WHITE BLOOD COUNT 20.3 X10'3 (4.5-11.0)
[2023-05-16 03:14] LABS: ABG BASE EXCESS -0.4 mmol/L (-2.0-2.0); ABG HCO3 24.1 mmol/L (22.0-26.0); ABG OXYGEN SATURATION 91.5 % (94-97); ABG PO2 (T) 63.7 mmHg (75.0-100.0); FCOHb 0.6 % (0.0-3.9); FHHb 8.4 % (0.0-5.0); FMetHb 0.3 % (0.0-1.5); FO2Hb 90.7 % (94-97); MODE VENT - AC; PATIENT TEMPERATURE 37.6; PEEP 5 cm H2O; RESPIRATORY RATE 14 b/min; TIDAL VOLUME 450 mL; TOTAL HEMOGLOBIN 10.9 G/dl (14.0-17.9)
[2023-05-16 03:18] LABS: ALANINE AMINOTRANSFERASE 24 U/L (12-78); ALBUMIN 1.9 G/DL (3.4-5.0); ALBUMIN/GLOBULIN RATIO 0.9 (1.1-1.5); ALKALINE PHOSPHATASE 35 IU/L (46-116); ANION GAP 8 (8-16); ASPARTATE AMINO TRANSFERASE 32 U/L (10-37); BLOOD UREA NITROGEN 63 MG/DL (7-18); CALCIUM 6.4 MG/DL (8.5-10.1); CHLORIDE 109 MMOL/L (99-107); CREATININE 1.37 MG/DL (0.60-1.10); GLUCOSE 148 MG/DL (70-104); MAGNESIUM 2.2 MG/DL (1.5-2.4); PHOSPHORUS 3.8 MG/DL (2.3-4.5); POTASSIUM 4.5 MMOL/L (3.5-5.1); SODIUM 142 MMOL/L (135-145); TOTAL CARBON DIOXIDE 25.1 MMOL/L (24-32); TOTAL PROTEIN 4.1 G/DL (6.4-8.2); TRIGLYCERIDES 71 MG/DL (20-135); eCRCL 50 ML/MIN; eGFR 50 ML/MIN
[2023-05-16 04:20] LABS: PLATELET ESTIMATE DECREASED; TOTAL CELLS COUNTED 100
[2023-05-16 04:21] LABS: ANISOCYTOSIS 2+; POLYCHROMASIA FEW
[2023-05-16 04:22] LABS: SCHISTOCYTES FEW
[2023-05-16] MEDS: fluconazole-Diflucan 200mg/NS 100 ML IV SCH (08:33)
[2023-05-16] MEDS: insulin regular, human U-100 3ml vial - multi-dose SQ SCH (08:46)
[2023-05-16] MEDS: furosemide 40mg/4ml inj ONE (11:56)
[2023-05-16] MEDS: furosemide 40mg/4ml inj IV ONE (11:57)
[2023-05-16] MEDS: mineral oil/petrolatum ophthal oint EACHEYE SCH (14:38)
[2023-05-17] VITALS (33 sets, daily range): BP systolic 101–157; BP diastolic 41–70; PULSE 60–96; RESP 1–20; O2SAT 89–98
[2023-05-17 02:47] LABS: BASOPHILS % (AUTO) 0.1 % (0-1); EOSINOPHILS % (AUTO) 0.2 % (0-6); HEMATOCRIT 28.1 % (42.0-52.0); HEMOGLOBIN 9.1 g/dl (14.0-17.9); LYMPHOCYTES # (AUTO) 0.6 X10'3 (1.1-4.8); LYMPHOCYTES % (AUTO) 3.5 % (21-51); MEAN CORPUSCULAR HEMOGLOBIN 32.1 PG (27.0-31.0); MEAN CORPUSCULAR HGB CONC 32.6 g/dL (33.0-36.5); MEAN CORPUSCULAR VOLUME 98.6 FL (78-98); MEAN PLATELET VOLUME 8.5 FL (7.4-10.4); MONOCYTES % (AUTO) 5.8 % (2-12); NEUTROPHILS % (AUTO) 90.4 % (42-75); RED BLOOD COUNT 2.85 X10'6 (4.70-6.10); RED CELL DISTRIBUTION WIDTH 19.8 % (11.5-14.5); WHITE BLOOD COUNT 16.5 X10'3 (4.5-11.0)
[2023-05-17 03:07] LABS: ALANINE AMINOTRANSFERASE 48 U/L (12-78); ALBUMIN 1.6 G/DL (3.4-5.0); ALKALINE PHOSPHATASE 40 IU/L (46-116); ANION GAP 8 (8-16); ASPARTATE AMINO TRANSFERASE 50 U/L (10-37); BILIRUBIN,TOTAL 5.5 MG/DL (0.1-1.0); BLOOD UREA NITROGEN 43 MG/DL (7-18); BUN/CREATININE RATIO 35.2 (10.0-20.0); CALCIUM 6.9 MG/DL (8.5-10.1); CHLORIDE 110 MMOL/L (99-107); CREATININE 1.22 MG/DL (0.60-1.10); GLUCOSE 108 MG/DL (70-104); POTASSIUM 3.8 MMOL/L (3.5-5.1); SODIUM 145 MMOL/L (135-145); TOTAL CARBON DIOXIDE 27.5 MMOL/L (24-32); eCRCL 56 ML/MIN; eGFR 57 ML/MIN
[2023-05-17 03:08] LABS: ALBUMIN/GLOBULIN RATIO 0.7 (1.1-1.5); PHOSPHORUS 2.7 MG/DL (2.3-4.5)
[2023-05-17 03:29] LABS: ABG BASE EXCESS 4.8 mmol/L (-2.0-2.0); ABG HCO3 28.9 mmol/L (22.0-26.0); ABG OXYGEN SATURATION 95.3 % (94-97); ABG PCO2 (T) 41.5 mmHg (35.0-48.0); ABG PH (T) 7.462 (7.340-7.440); ABG PO2 (T) 76.2 mmHg (75.0-100.0); FCOHb 0.3 % (0.0-3.9); FHHb 4.7 % (0.0-5.0); FMetHb 0.3 % (0.0-1.5); FO2Hb 94.7 % (94-97); MODE VENT - prvc; PATIENT TEMPERATURE 37.5; PEEP 5 cm H2O; RESPIRATORY RATE 14 b/min; TIDAL VOLUME 450 mL; TOTAL HEMOGLOBIN 10.1 G/dl (14.0-17.9)
[2023-05-17 03:30] LABS: PLATELET COUNT 35 X10'3 (140-440)
[2023-05-17] MEDS: furosemide 10 MG/1 ML 10ml inj IV ONE (09:43)
[2023-05-17] MEDS: pantoprazole 40MG/NS 100ML BAG 100 ML IV SCH (20:10)
[2023-05-18] VITALS (30 sets, daily range): BP systolic 99–131; BP diastolic 39–57; PULSE 61–89; RESP 12–25; O2SAT 88–100
[2023-05-18 10:13] LABS: BASOPHILS % (AUTO) 0.1 % (0-1); EOSINOPHILS # (AUTO) 0.1 X10'3 (0-0.9); EOSINOPHILS % (AUTO) 0.5 % (0-6); HEMATOCRIT 28.1 % (42.0-52.0); LYMPHOCYTES # (AUTO) 0.7 X10'3 (1.1-4.8); LYMPHOCYTES % (AUTO) 5.4 % (21-51); MEAN CORPUSCULAR HEMOGLOBIN 32.2 PG (27.0-31.0); MEAN CORPUSCULAR HGB CONC 31.9 g/dL (33.0-36.5); MEAN PLATELET VOLUME 8.9 FL (7.4-10.4); MONOCYTES # (AUTO) 0.7 X10'3 (0-0.9); MONOCYTES % (AUTO) 5.6 % (2-12); NEUTROPHILS # (AUTO) 11.4 X10'3 (1.8-7.7); NEUTROPHILS % (AUTO) 88.4 % (42-75); RED BLOOD COUNT 2.78 X10'6 (4.70-6.10); RED CELL DISTRIBUTION WIDTH 22.4 % (11.5-14.5); WHITE BLOOD COUNT 12.9 X10'3 (4.5-11.0)
[2023-05-18 10:16] LABS: PLATELET COUNT 30 X10'3 (140-440)
[2023-05-18 10:40] LABS: ALANINE AMINOTRANSFERASE 78 U/L (12-78); ALBUMIN 1.6 G/DL (3.4-5.0); ALKALINE PHOSPHATASE 52 IU/L (46-116); ANION GAP 6 (8-16); ASPARTATE AMINO TRANSFERASE 70 U/L (10-37); BILIRUBIN,TOTAL 5.5 MG/DL (0.1-1.0); BLOOD UREA NITROGEN 38 MG/DL (7-18); BUN/CREATININE RATIO 31.9 (10.0-20.0); CALCIUM 7.5 MG/DL (8.5-10.1); CHLORIDE 109 MMOL/L (99-107); CREATININE 1.19 MG/DL (0.60-1.10); GLUCOSE 74 MG/DL (70-104); POTASSIUM 3.4 MMOL/L (3.5-5.1); SODIUM 145 MMOL/L (135-145); TOTAL CARBON DIOXIDE 29.9 MMOL/L (24-32); eCRCL 58 ML/MIN; eGFR 59 ML/MIN
[2023-05-18] MEDS: dextrose 50%-water 50ml dispensing syringe IV PRN (10:42)
[2023-05-18 10:55] LABS: ALBUMIN/GLOBULIN RATIO 0.5 (1.1-1.5); PHOSPHORUS 2.7 MG/DL (2.3-4.5); TOTAL PROTEIN 4.6 G/DL (6.4-8.2)
[2023-05-18 11:08] LABS: PLATELET ESTIMATE DECREASED
[2023-05-18 11:09] LABS: ANISOCYTOSIS 3+; POLYCHROMASIA 1+; TARGET CELLS FEW
[2023-05-18] MEDS: ipratropium/albuterol 3ml nebule NEB SCH (15:02)
[2023-05-19] VITALS (31 sets, daily range): BP systolic 91–130; BP diastolic 37–67; PULSE 60–98; RESP 2–28; TEMP 97–97.9; O2SAT 85–96
[2023-05-19 04:50] LABS: ALANINE AMINOTRANSFERASE 80 U/L (12-78); ALBUMIN 1.6 G/DL (3.4-5.0); ALBUMIN/GLOBULIN RATIO 0.6 (1.1-1.5); ALKALINE PHOSPHATASE 76 IU/L (46-116); ANION GAP 3 (8-16); ASPARTATE AMINO TRANSFERASE 67 U/L (10-37); BILIRUBIN,TOTAL 4.1 MG/DL (0.1-1.0); BLOOD UREA NITROGEN 36 MG/DL (7-18); BUN/CREATININE RATIO 31.3 (10.0-20.0); CALCIUM 7.4 MG/DL (8.5-10.1); CHLORIDE 111 MMOL/L (99-107); CREATININE 1.15 MG/DL (0.60-1.10); GLUCOSE 106 MG/DL (70-104); POTASSIUM 3.6 MMOL/L (3.5-5.1); SODIUM 148 MMOL/L (135-145); TOTAL CARBON DIOXIDE 33.8 MMOL/L (24-32); TOTAL PROTEIN 4.5 G/DL (6.4-8.2); eCRCL 60 ML/MIN; eGFR 61 ML/MIN
[2023-05-19 05:19] LABS: BASOPHILS % (AUTO) 0.1 % (0-1); EOSINOPHILS # (AUTO) 0.1 X10'3 (0-0.9); HEMATOCRIT 25.1 % (42.0-52.0); HEMOGLOBIN 7.9 g/dl (14.0-17.9); LYMPHOCYTES # (AUTO) 0.7 X10'3 (1.1-4.8); LYMPHOCYTES % (AUTO) 6.5 % (21-51); MEAN CORPUSCULAR HEMOGLOBIN 32.2 PG (27.0-31.0); MEAN CORPUSCULAR HGB CONC 31.6 g/dL (33.0-36.5); MEAN CORPUSCULAR VOLUME 101.9 FL (78-98); MEAN PLATELET VOLUME 10.2 FL (7.4-10.4); MONOCYTES # (AUTO) 0.8 X10'3 (0-0.9); MONOCYTES % (AUTO) 7.4 % (2-12); NEUTROPHILS # (AUTO) 9.1 X10'3 (1.8-7.7); PLATELET COUNT 60 X10'3 (140-440); RED BLOOD COUNT 2.46 X10'6 (4.70-6.10); RED CELL DISTRIBUTION WIDTH 22.5 % (11.5-14.5); WHITE BLOOD COUNT 10.7 X10'3 (4.5-11.0)
[2023-05-19] MEDS: bisacodyl 10mg suppository rectal RC STA (08:48)
[2023-05-19] MEDS: magnesium hydroxide 30ml (MOM) UD suspension PO ONE (08:48)
[2023-05-19 11:35] LABS: ABG BASE EXCESS 6.5 mmol/L (-2.0-2.0); ABG HCO3 30.6 mmol/L (22.0-26.0); ABG OXYGEN SATURATION 95.7 % (94-97); ABG PCO2 (T) 40.1 mmHg (35.0-48.0); ABG PH (T) 7.496 (7.340-7.440); ABG PO2 (T) 71.2 mmHg (75.0-100.0); ALLEN'S TEST POSITIVE; FCOHb 0.7 % (0.0-3.9); FHHb 4.3 % (0.0-5.0); FMetHb 0.3 % (0.0-1.5); FO2Hb 94.7 % (94-97); MODE MASK - BIPAP; TOTAL HEMOGLOBIN 7.2 G/dl (14.0-17.9)
[2023-05-19 15:32] LABS: ABG BASE EXCESS 9.2 mmol/L (-2.0-2.0); ABG OXYGEN SATURATION 98.7 % (94-97); ABG PCO2 (T) 40.3 mmHg (35.0-48.0); ABG PH (T) 7.528 (7.340-7.440); ABG PO2 (T) 109.6 mmHg (75.0-100.0); ALLEN'S TEST POSITIVE; FCOHb 0.8 % (0.0-3.9); FHHb 1.3 % (0.0-5.0); FMetHb 0.3 % (0.0-1.5); FO2Hb 97.6 % (94-97); MODE MASK - BIPAP; PATIENT TEMPERATURE 36.1; TOTAL HEMOGLOBIN 6.3 G/dl (14.0-17.9)
[2023-05-19] MEDS ORDERED: pantoprazole 40MG/NS 100ML BAG 100 ML IV SCH (16:00)
[2023-05-19 17:23] LABS: BASOPHILS # (AUTO) 0.1 X10'3 (0-0.2); BASOPHILS % (AUTO) 0.5 % (0-1); EOSINOPHILS # (AUTO) 0.1 X10'3 (0-0.9); EOSINOPHILS % (AUTO) 0.5 % (0-6); LYMPHOCYTES # (AUTO) 0.5 X10'3 (1.1-4.8); MEAN CORPUSCULAR HEMOGLOBIN 32.2 PG (27.0-31.0); MEAN CORPUSCULAR HGB CONC 31.2 g/dL (33.0-36.5); MEAN CORPUSCULAR VOLUME 103.2 FL (78-98); MEAN PLATELET VOLUME 10.1 FL (7.4-10.4); MONOCYTES # (AUTO) 0.9 X10'3 (0-0.9); MONOCYTES % (AUTO) 7.1 % (2-12); NEUTROPHILS # (AUTO) 10.7 X10'3 (1.8-7.7); NEUTROPHILS % (AUTO) 87.9 % (42-75); PLATELET COUNT 57 X10'3 (140-440); RED BLOOD COUNT 1.65 X10'6 (4.70-6.10); RED CELL DISTRIBUTION WIDTH 22.6 % (11.5-14.5); WHITE BLOOD COUNT 12.2 X10'3 (4.5-11.0)
[2023-05-19 17:31] LABS: HEMOGLOBIN 5.3 g/dl (14.0-17.9)
[2023-05-19] MEDS: lactose-reduced food (Ensure Enlive) - 237ml bottle PO SCH (18:00)
[2023-05-19] MEDS: pantoprazole 40 MG vial IV SCH (21:20)
[2023-05-19] MEDS: normal saline 1000ml 1,000 ML IVB ONE (21:22)
[2023-05-19 21:38] LABS: ABG BASE EXCESS 6.7 mmol/L (-2.0-2.0); ABG HCO3 31.1 mmol/L (22.0-26.0); ABG OXYGEN SATURATION 96.2 % (94-97); ABG PCO2 (T) 43.2 mmHg (35.0-48.0); ABG PH (T) 7.472 (7.340-7.440); ABG PO2 (T) 76.1 mmHg (75.0-100.0); ALLEN'S TEST POSITIVE; FCOHb 1.2 % (0.0-3.9); FHHb 3.7 % (0.0-5.0); FLOW 5 L/min; FMetHb 0.3 % (0.0-1.5); FO2Hb 94.8 % (94-97); MODE NASAL CANNULA; PATIENT TEMPERATURE 36.4; TOTAL HEMOGLOBIN 6.9 G/dl (14.0-17.9)
[2023-05-20] VITALS (45 sets, daily range): BP systolic 83–149; BP diastolic 38–76; PULSE 60–80; RESP 12–29; TEMP 96.8–97.8; O2SAT 89–100
[2023-05-20] MEDS: NORepinephrine 8mg/ 250ml NS 250 ML IV ONE (03:53)
[2023-05-20 04:01] LABS: LYMPHOCYTES # (AUTO) 0.7 X10'3 (1.1-4.8)
[2023-05-20 04:02] LABS: BASOPHILS % (AUTO) 0.1 % (0-1); EOSINOPHILS % (AUTO) 0.1 % (0-6); LYMPHOCYTES % (AUTO) 4.4 % (21-51); MEAN CORPUSCULAR HEMOGLOBIN 31.4 PG (27.0-31.0); MEAN CORPUSCULAR HGB CONC 32.3 g/dL (33.0-36.5); MEAN CORPUSCULAR VOLUME 97.3 FL (78-98); MEAN PLATELET VOLUME 9.8 FL (7.4-10.4); MONOCYTES % (AUTO) 6.5 % (2-12); NEUTROPHILS # (AUTO) 14.1 X10'3 (1.8-7.7); NEUTROPHILS % (AUTO) 88.9 % (42-75); PLATELET COUNT 62 X10'3 (140-440); RED BLOOD COUNT 2.14 X10'6 (4.70-6.10); RED CELL DISTRIBUTION WIDTH 18.6 % (11.5-14.5); WHITE BLOOD COUNT 15.9 X10'3 (4.5-11.0)
[2023-05-20 04:13] LABS: HEMOGLOBIN 6.7 g/dl (14.0-17.9)
[2023-05-20 04:14] LABS: HEMATOCRIT 20.8 % (42.0-52.0)
[2023-05-20 04:21] LABS: ALANINE AMINOTRANSFERASE 37 U/L (12-78); ALBUMIN 1.1 G/DL (3.4-5.0); ALBUMIN/GLOBULIN RATIO 0.6 (1.1-1.5); ALKALINE PHOSPHATASE 51 IU/L (46-116); ANION GAP 6 (8-16); APTT 24 SECONDS (22-32); ASPARTATE AMINO TRANSFERASE 33 U/L (10-37); BILIRUBIN,TOTAL 3.2 MG/DL (0.1-1.0); BLOOD UREA NITROGEN 37 MG/DL (7-18); BUN/CREATININE RATIO 28.9 (10.0-20.0); CALCIUM 6.4 MG/DL (8.5-10.1); CHLORIDE 114 MMOL/L (99-107); CREATININE 1.28 MG/DL (0.60-1.10); FIBRINOGEN 242 MG/DL (177-424); GLUCOSE 182 MG/DL (70-104); INR 1.4 INR; POTASSIUM 4.6 MMOL/L (3.5-5.1); PROTHROMBIN TIME 15.1 SECONDS (9.0-12.0); SODIUM 148 MMOL/L (135-145); TOTAL CARBON DIOXIDE 27.7 MMOL/L (24-32); eCRCL 54 ML/MIN; eGFR 54 ML/MIN
[2023-05-20] MEDS ORDERED: calcium gluconate inj. 2 GM in normal saline 100ml IV soln 100 ML IV ONE (04:45)
[2023-05-20] MEDS: CALCIUM GLUC 1gm/50ml NACL,iso 50 ML IV ONE ×2 (05:15→05:16)
[2023-05-20] MEDS: pantoprazole 40MG/NS 100ML BAG 100 ML IV SCH (08:40)
[2023-05-20 08:43] LABS: ANISOCYTOSIS 2+; NUCLEATED RED BLOOD CELLS 4 /100WBC (0-0); PLATELET ESTIMATE DECREASED; TOTAL CELLS COUNTED 100
[2023-05-20 08:44] LABS: HYPOCHROMASIA 1+; POIKILOCYTOSIS FEW; POLYCHROMASIA FEW
[2023-05-20] MEDS: furosemide 40mg/4ml inj IV ONE (08:50)
[2023-05-20] MEDS ORDERED: pantoprazole 40MG/NS 100ML BAG 100 ML IV SCH (11:00)
[2023-05-20 15:37] LABS: HEMATOCRIT 30.2 % (42.0-52.0); HEMOGLOBIN 9.7 g/dl (14.0-17.9); MEAN CORPUSCULAR HEMOGLOBIN 29.6 PG (27.0-31.0); MEAN CORPUSCULAR HGB CONC 32.3 g/dL (33.0-36.5); MEAN CORPUSCULAR VOLUME 91.8 FL (78-98); MEAN PLATELET VOLUME 9.6 FL (7.4-10.4); PLATELET COUNT 51 X10'3 (140-440); RED BLOOD COUNT 3.29 X10'6 (4.70-6.10); RED CELL DISTRIBUTION WIDTH 20.2 % (11.5-14.5)
[2023-05-20] MEDS: sucralfate 1 gm tablet NG SCH (17:02)
[2023-05-21] VITALS (40 sets, daily range): BP systolic 83–123; BP diastolic 22–54; PULSE 60–77; RESP 14–23; TEMP 96–99.2; O2SAT 86–99
[2023-05-21] MEDS: QUEtiapine 25mg tablet PO SCH (00:35)
[2023-05-21 02:10] LABS: BASOPHILS % (AUTO) 0.1 % (0-1); EOSINOPHILS % (AUTO) 0.2 % (0-6)
[2023-05-21 02:11] LABS: LYMPHOCYTES # (AUTO) 0.8 X10'3 (1.1-4.8); LYMPHOCYTES % (AUTO) 4.4 % (21-51); MEAN CORPUSCULAR HEMOGLOBIN 30.3 PG (27.0-31.0); MEAN CORPUSCULAR HGB CONC 31.9 g/dL (33.0-36.5); MEAN CORPUSCULAR VOLUME 94.9 FL (78-98); MEAN PLATELET VOLUME 9.8 FL (7.4-10.4); MONOCYTES # (AUTO) 1.2 X10'3 (0-0.9); MONOCYTES % (AUTO) 6.5 % (2-12); NEUTROPHILS # (AUTO) 16.4 X10'3 (1.8-7.7); NEUTROPHILS % (AUTO) 88.8 % (42-75); RED BLOOD COUNT 2.16 X10'6 (4.70-6.10); RED CELL DISTRIBUTION WIDTH 20.1 % (11.5-14.5); WHITE BLOOD COUNT 18.4 X10'3 (4.5-11.0)
[2023-05-21 02:24] LABS: ALANINE AMINOTRANSFERASE 31 U/L (12-78); ALBUMIN/GLOBULIN RATIO 0.6 (1.1-1.5); ALKALINE PHOSPHATASE 35 IU/L (46-116); ANION GAP 3 (8-16); ASPARTATE AMINO TRANSFERASE 25 U/L (10-37); BILIRUBIN,TOTAL 2.3 MG/DL (0.1-1.0); BLOOD UREA NITROGEN 58 MG/DL (7-18); BUN/CREATININE RATIO 31.9 (10.0-20.0); CALCIUM 6.4 MG/DL (8.5-10.1); CHLORIDE 115 MMOL/L (99-107); CREATININE 1.82 MG/DL (0.60-1.10); GLUCOSE 153 MG/DL (70-104); MAGNESIUM 1.9 MG/DL (1.5-2.4); POTASSIUM 4.7 MMOL/L (3.5-5.1); SODIUM 150 MMOL/L (135-145); TOTAL CARBON DIOXIDE 31.6 MMOL/L (24-32); TOTAL PROTEIN 2.8 G/DL (6.4-8.2); eCRCL 38 ML/MIN; eGFR 36 ML/MIN
[2023-05-21] MEDS: NORepinephrine 8mg/ 250ml NS 250 ML IV PRN (02:33)
[2023-05-21 02:44] LABS: HEMATOCRIT 20.5 % (42.0-52.0); HEMOGLOBIN 6.5 g/dl (14.0-17.9); PLATELET COUNT 43 X10'3 (140-440)
[2023-05-21] MEDS: CALCIUM GLUC 1gm/50ml NACL,iso 50 ML IV ONE (02:55)
[2023-05-21 03:25] LABS: NUCLEATED RED BLOOD CELLS 2 /100WBC (0-0); PLATELET ESTIMATE DECREASED; TOTAL CELLS COUNTED 100
[2023-05-21 03:26] LABS: ANISOCYTOSIS 3+; POLYCHROMASIA 1+
[2023-05-21 08:53] LABS: MEAN CORPUSCULAR HEMOGLOBIN 30.5 PG (27.0-31.0); MEAN CORPUSCULAR HGB CONC 32.1 g/dL (33.0-36.5); MEAN CORPUSCULAR VOLUME 94.9 FL (78-98); MEAN PLATELET VOLUME 9.1 FL (7.4-10.4); PLATELET COUNT 89 X10'3 (140-440); RED BLOOD COUNT 2.64 X10'6 (4.70-6.10); RED CELL DISTRIBUTION WIDTH 18.2 % (11.5-14.5); WHITE BLOOD COUNT 17.9 X10'3 (4.5-11.0)
[2023-05-21 10:12] LABS: APTT 28 SECONDS (22-32); INR 1.4 INR
[2023-05-21 10:20] LABS: FIBRINOGEN 152 MG/DL (177-424); PROTHROMBIN TIME 14.4 SECONDS (9.0-12.0)
[2023-05-21] MEDS ORDERED: midazolam 1 mg/ML 2ml injection ONE (11:27)
[2023-05-21] MEDS ORDERED: iohexol 300mg/ml 100ml inj. ONE (11:27)
[2023-05-21] MEDS ORDERED: LIDOcaine 1% 30ml preserv. free vial ONE (11:27)
[2023-05-21] MEDS ORDERED: fentaNYL/PF 50MCG/1 ML 2ML syringe ONE (11:27)
[2023-05-21] MEDS ORDERED: heparin 1,000 UNITS/NS 500ml 500 ML ONE (11:27)
[2023-05-21] MEDS ORDERED: diphenhydrAMINE 50 mg/ml inj ONE (12:14)
[2023-05-21] MEDS: normal saline 1000ml 1,000 ML IV SCH (13:54)
[2023-05-21 14:46] LABS: HEMATOCRIT 22.8 % (42.0-52.0); HEMOGLOBIN 7.3 g/dl (14.0-17.9); MEAN CORPUSCULAR HEMOGLOBIN 30.6 PG (27.0-31.0); MEAN CORPUSCULAR HGB CONC 31.9 g/dL (33.0-36.5); MEAN PLATELET VOLUME 9.1 FL (7.4-10.4); PLATELET COUNT 71 X10'3 (140-440); RED BLOOD COUNT 2.37 X10'6 (4.70-6.10); RED CELL DISTRIBUTION WIDTH 17.7 % (11.5-14.5); WHITE BLOOD COUNT 18.2 X10'3 (4.5-11.0)
[2023-05-21] MEDS: furosemide 40mg/4ml inj IV ONE (18:35)
[2023-05-21 21:28] LABS: MEAN CORPUSCULAR HEMOGLOBIN 31.4 PG (27.0-31.0); MEAN PLATELET VOLUME 9.6 FL (7.4-10.4); PLATELET COUNT 60 X10'3 (140-440); RED BLOOD COUNT 2.07 X10'6 (4.70-6.10); RED CELL DISTRIBUTION WIDTH 18.3 % (11.5-14.5)
[2023-05-21 21:34] LABS: HEMATOCRIT 20.3 % (42.0-52.0); HEMOGLOBIN 6.5 g/dl (14.0-17.9)
[2023-05-22] VITALS (57 sets, daily range): BP systolic 99–156; BP diastolic 38–68; PULSE 60–96; RESP 11–32; TEMP 96–98.7; O2SAT 82–100
[2023-05-22 03:29] LABS: HEMOGLOBIN 9.1 g/dl (14.0-17.9); RED CELL DISTRIBUTION WIDTH 16.2 % (11.5-14.5)
[2023-05-22 03:31] LABS: BASOPHILS % (AUTO) 0.1 % (0-1); EOSINOPHILS # (AUTO) 0.3 X10'3 (0-0.9); EOSINOPHILS % (AUTO) 1.5 % (0-6); LYMPHOCYTES # (AUTO) 0.9 X10'3 (1.1-4.8); LYMPHOCYTES % (AUTO) 5.2 % (21-51); MEAN CORPUSCULAR HEMOGLOBIN 31.5 PG (27.0-31.0); MEAN CORPUSCULAR HGB CONC 32.4 g/dL (33.0-36.5); MEAN CORPUSCULAR VOLUME 97.1 FL (78-98); MEAN PLATELET VOLUME 9.8 FL (7.4-10.4); MONOCYTES # (AUTO) 1.5 X10'3 (0-0.9); MONOCYTES % (AUTO) 8.8 % (2-12); NEUTROPHILS # (AUTO) 14.4 X10'3 (1.8-7.7); NEUTROPHILS % (AUTO) 84.4 % (42-75); RED BLOOD COUNT 2.88 X10'6 (4.70-6.10); WHITE BLOOD COUNT 17.1 X10'3 (4.5-11.0)
[2023-05-22 03:44] LABS: ALANINE AMINOTRANSFERASE 28 U/L (12-78); ALBUMIN 1.3 G/DL (3.4-5.0); ALBUMIN/GLOBULIN RATIO 0.6 (1.1-1.5); ALKALINE PHOSPHATASE 38 IU/L (46-116); ANION GAP 5 (8-16); ASPARTATE AMINO TRANSFERASE 29 U/L (10-37); BILIRUBIN,TOTAL 2.2 MG/DL (0.1-1.0); BLOOD UREA NITROGEN 75 MG/DL (7-18); BUN/CREATININE RATIO 43.4 (10.0-20.0); CALCIUM 6.9 MG/DL (8.5-10.1); CHLORIDE 117 MMOL/L (99-107); CREATININE 1.73 MG/DL (0.60-1.10); GLUCOSE 140 MG/DL (70-104); PHOSPHORUS 3.1 MG/DL (2.3-4.5); POTASSIUM 4.1 MMOL/L (3.5-5.1); SODIUM 153 MMOL/L (135-145); TOTAL PROTEIN 3.4 G/DL (6.4-8.2); eCRCL 40 ML/MIN; eGFR 38 ML/MIN
[2023-05-22 04:08] LABS: ANISOCYTOSIS 1+; NUCLEATED RED BLOOD CELLS 2 /100WBC (0-0); PLATELET ESTIMATE DECREASED; TOTAL CELLS COUNTED 100
[2023-05-22 04:09] LABS: POLYCHROMASIA 1+
[2023-05-22 09:17] LABS: MEAN CORPUSCULAR HEMOGLOBIN 31.6 PG (27.0-31.0); MEAN CORPUSCULAR HGB CONC 32.2 g/dL (33.0-36.5); MEAN PLATELET VOLUME 8.8 FL (7.4-10.4); PLATELET COUNT 75 X10'3 (140-440); RED BLOOD COUNT 2.18 X10'6 (4.70-6.10); RED CELL DISTRIBUTION WIDTH 15.9 % (11.5-14.5); WHITE BLOOD COUNT 18.6 X10'3 (4.5-11.0)
[2023-05-22 09:26] LABS: APTT 27 SECONDS (22-32); FIBRINOGEN 154 MG/DL (177-424); INR 1.4 INR; PROTHROMBIN TIME 15.1 SECONDS (9.0-12.0)
[2023-05-22 09:27] LABS: HEMATOCRIT 21.4 % (42.0-52.0); HEMOGLOBIN 6.9 g/dl (14.0-17.9)
[2023-05-22 10:12] LABS: PLATELET COUNT 45 X10'3 (140-440)
[2023-05-22] MEDS: furosemide 20 MG/2 ML vial IV SCH (12:21)
[2023-05-22] MEDS ORDERED: LIDOcaine Viscous 15ml cup ONE (15:07)
[2023-05-22] MEDS ORDERED: fentaNYL/PF 50MCG/1 ML 2ML syringe ONE (15:07)
[2023-05-22] MEDS ORDERED: MIDAZolam 1 MG/ML 5ML VIAL ONE (15:07)
[2023-05-22] MEDS ORDERED: epiNEPHrine 0.1mg/ml 10ml syringe ONE (15:08)
[2023-05-22] MEDS ORDERED: glucagon, human recombinant 1mg kit ONE (15:49)
[2023-05-22] MEDS: MVI, adult No.4 with vit. K 10 ML in dextrose 5% water 500ml 500 ML IV ONE (16:32)
[2023-05-22] MEDS: furosemide 40mg/4ml inj IV ONE (17:27)
[2023-05-22] MEDS: ZINC/COPPER/MANGANESE/SELENIUM 0.5 ML, chromic chloride inj. 5 MCG in AMINO ACIDS 5 %/D... IV SCH (19:25)
[2023-05-22] MEDS ORDERED: ZINC/COPPER/MANGANESE/SELENIUM 0.5 ML, chromic chloride inj. 5 MCG in AMINO ACIDS 5 %/D... IV SCH (20:00)
[2023-05-22] MEDS: fat emulsion 20% inj. 100 ML IV SCH (20:17)
[2023-05-22 21:17] LABS: MEAN CORPUSCULAR HEMOGLOBIN 31.6 PG (27.0-31.0); MEAN CORPUSCULAR HGB CONC 32.8 g/dL (33.0-36.5); MEAN CORPUSCULAR VOLUME 96.4 FL (78-98); MEAN PLATELET VOLUME 8.9 FL (7.4-10.4); RED BLOOD COUNT 2.13 X10'6 (4.70-6.10); RED CELL DISTRIBUTION WIDTH 15.2 % (11.5-14.5); WHITE BLOOD COUNT 11.9 X10'3 (4.5-11.0)
[2023-05-22 21:22] LABS: HEMATOCRIT 20.6 % (42.0-52.0); HEMOGLOBIN 6.7 g/dl (14.0-17.9); PLATELET COUNT 39 X10'3 (140-440)
[2023-05-23] VITALS (57 sets, daily range): BP systolic 125–175; BP diastolic 32–163; PULSE 60–96; RESP 12–28; TEMP 97.9–99.2; O2SAT 91–100
[2023-05-23 02:10] LABS: HEMOGLOBIN 7.2 g/dl (14.0-17.9); MEAN CORPUSCULAR HGB CONC 32.5 g/dL (33.0-36.5); RED BLOOD COUNT 2.32 X10'6 (4.70-6.10)
[2023-05-23 02:13] LABS: BASOPHILS % (AUTO) 0.2 % (0-1); EOSINOPHILS # (AUTO) 0.4 X10'3 (0-0.9); HEMATOCRIT 22.3 % (42.0-52.0); LYMPHOCYTES # (AUTO) 0.6 X10'3 (1.1-4.8); LYMPHOCYTES % (AUTO) 4.8 % (21-51); MEAN CORPUSCULAR HEMOGLOBIN 31.2 PG (27.0-31.0); MONOCYTES # (AUTO) 0.9 X10'3 (0-0.9); NEUTROPHILS # (AUTO) 10.6 X10'3 (1.8-7.7); RED CELL DISTRIBUTION WIDTH 15.1 % (11.5-14.5); WHITE BLOOD COUNT 12.5 X10'3 (4.5-11.0)
[2023-05-23 02:17] LABS: APTT 26 SECONDS (22-32); FIBRINOGEN 222 MG/DL (177-424); INR 1.2 INR; PROTHROMBIN TIME 12.6 SECONDS (9.0-12.0)
[2023-05-23 02:18] LABS: PLATELET COUNT 38 X10'3 (140-440)
[2023-05-23 02:22] LABS: ALANINE AMINOTRANSFERASE 27 U/L (12-78); ALBUMIN 1.8 G/DL (3.4-5.0); ALBUMIN/GLOBULIN RATIO 0.8 (1.1-1.5); ALKALINE PHOSPHATASE 46 IU/L (46-116); ANION GAP 7 (8-16); ASPARTATE AMINO TRANSFERASE 25 U/L (10-37); BLOOD UREA NITROGEN 72 MG/DL (7-18); BUN/CREATININE RATIO 47.1 (10.0-20.0); CALCIUM 6.6 MG/DL (8.5-10.1); CHLORIDE 118 MMOL/L (99-107); CREATININE 1.53 MG/DL (0.60-1.10); GLUCOSE 137 MG/DL (70-104); MAGNESIUM 1.9 MG/DL (1.5-2.4); PHOSPHORUS 2.9 MG/DL (2.3-4.5); PREALBUMIN 15.2 MG/DL (19-36); TOTAL CARBON DIOXIDE 30.2 MMOL/L (24-32); TOTAL PROTEIN 4.1 G/DL (6.4-8.2); TRIGLYCERIDES 114 MG/DL (20-135); eCRCL 45 ML/MIN; eGFR 44 ML/MIN
[2023-05-23 02:25] LABS: SODIUM 155 MMOL/L (135-145)
[2023-05-23] MEDS ORDERED: magnesium 2GM in 50ml NS 50 ML IV PRN (03:25)
[2023-05-23 03:59] LABS: ANISOCYTOSIS 1+; BURR CELLS FEW; NUCLEATED RED BLOOD CELLS 3 /100WBC (0-0); PLATELET ESTIMATE DECREASED; POLYCHROMASIA 1+; TOTAL CELLS COUNTED 100
[2023-05-23] MEDS: sodium chloride 0.45% 1,000 ML IV SCH (04:04)
[2023-05-23] MEDS: potassium Cl 40MEQ/270ML bag 270 ML IV PRN (04:55)
[2023-05-23 09:12] LABS: MEAN CORPUSCULAR HEMOGLOBIN 31.3 PG (27.0-31.0); MEAN CORPUSCULAR HGB CONC 31.7 g/dL (33.0-36.5); MEAN CORPUSCULAR VOLUME 98.5 FL (78-98); MEAN PLATELET VOLUME 9.8 FL (7.4-10.4); PLATELET COUNT 54 X10'3 (140-440); RED BLOOD COUNT 2.16 X10'6 (4.70-6.10); WHITE BLOOD COUNT 12.4 X10'3 (4.5-11.0)
[2023-05-23 09:26] LABS: HEMATOCRIT 21.3 % (42.0-52.0); HEMOGLOBIN 6.7 g/dl (14.0-17.9)
[2023-05-23 11:56] LABS: ABG HCO3 31.6 mmol/L (22.0-26.0); ABG OXYGEN SATURATION 92.6 % (94-97); ABG PCO2 (T) 45.6 mmHg (35.0-48.0); ABG PH (T) 7.458 (7.340-7.440); ABG PO2 (T) 61.5 mmHg (75.0-100.0); ALLEN'S TEST POSITIVE; FCOHb 0.5 % (0.0-3.9); FHHb 7.3 % (0.0-5.0); FLOW 4 L/min; FMetHb 0.3 % (0.0-1.5); FO2Hb 91.9 % (94-97); MODE NASAL CANNULA; TOTAL HEMOGLOBIN 8.4 G/dl (14.0-17.9)
[2023-05-23] MEDS ORDERED: niCARdipine I.V. 50 MG in normal saline 250ml IV soln 230 ML IV SCH (13:05)
[2023-05-23] MEDS: niCARDipine-NS 40mg/200ml IVPB IV SCH (15:39)
[2023-05-23] MEDS: dextrose 5%-1/4 normal saline 1,000 ML IV SCH (16:40)
[2023-05-23 17:33] LABS: ALANINE AMINOTRANSFERASE 23 U/L (12-78); ALBUMIN 1.5 G/DL (3.4-5.0); ALBUMIN/GLOBULIN RATIO 0.6 (1.1-1.5); ALKALINE PHOSPHATASE 40 IU/L (46-116); ANION GAP 3 (8-16); ASPARTATE AMINO TRANSFERASE 26 U/L (10-37); BILIRUBIN,TOTAL 1.7 MG/DL (0.1-1.0); BLOOD UREA NITROGEN 51 MG/DL (7-18); CHLORIDE 97 MMOL/L (99-107); CREATININE 2.32 MG/DL (0.60-1.10); TOTAL CARBON DIOXIDE 25.4 MMOL/L (24-32); eCRCL 30 ML/MIN; eGFR 27 ML/MIN
[2023-05-23 18:21] LABS: MEAN CORPUSCULAR HEMOGLOBIN 31.4 PG (27.0-31.0); PLATELET COUNT 71 X10'3 (140-440); RED BLOOD COUNT 2.86 X10'6 (4.70-6.10)
[2023-05-23 18:23] LABS: HEMATOCRIT 27.2 % (42.0-52.0); MEAN CORPUSCULAR VOLUME 95.2 FL (78-98); RED CELL DISTRIBUTION WIDTH 14.9 % (11.5-14.5); WHITE BLOOD COUNT 12.8 X10'3 (4.5-11.0)
[2023-05-23 18:29] LABS: ALANINE AMINOTRANSFERASE 28 U/L (12-78); ALBUMIN 1.9 G/DL (3.4-5.0); ALBUMIN/GLOBULIN RATIO 0.8 (1.1-1.5); ALKALINE PHOSPHATASE 53 IU/L (46-116); ANION GAP 6 (8-16); ASPARTATE AMINO TRANSFERASE 30 U/L (10-37); BILIRUBIN,TOTAL 2.2 MG/DL (0.1-1.0); BLOOD UREA NITROGEN 61 MG/DL (7-18); BUN/CREATININE RATIO 41.5 (10.0-20.0); CALCIUM 7.1 MG/DL (8.5-10.1); CHLORIDE 119 MMOL/L (99-107); CREATININE 1.47 MG/DL (0.60-1.10); GLUCOSE 162 MG/DL (70-104); POTASSIUM 3.3 MMOL/L (3.5-5.1); TOTAL CARBON DIOXIDE 30.9 MMOL/L (24-32); TOTAL PROTEIN 4.4 G/DL (6.4-8.2); eCRCL 47 ML/MIN; eGFR 46 ML/MIN
[2023-05-23 18:35] LABS: SODIUM 156 MMOL/L (135-145)
[2023-05-23] MEDS ORDERED: midazolam 1 mg/ML 2ml injection ONE (18:43)
[2023-05-23] MEDS ORDERED: fentaNYL/PF 50MCG/1 ML 2ML syringe ONE (18:43)
[2023-05-23] MEDS ORDERED: propofol inj 20 ML IV ONE (19:08)
[2023-05-23] MEDS ORDERED: rocuronium 10mg/ml inj IV ONE (19:09)
[2023-05-23] MEDS ORDERED: neostigmine methylsulfate 1 MG/ML 10ml vial ONE (19:09)
[2023-05-23] MEDS ORDERED: meperidine/PF 25mg/ml syringe ONE (19:22)
[2023-05-24] VITALS (44 sets, daily range): BP systolic 121–154; BP diastolic 39–67; PULSE 60–95; RESP 15–35; O2SAT 91–96
[2023-05-24 00:59] LABS: EOSINOPHILS # (AUTO) 0.3 X10'3 (0-0.9); LYMPHOCYTES # (AUTO) 0.5 X10'3 (1.1-4.8); MONOCYTES # (AUTO) 0.6 X10'3 (0-0.9); WHITE BLOOD COUNT 13.7 X10'3 (4.5-11.0)
[2023-05-24 01:00] LABS: BASOPHILS % (AUTO) 0.1 % (0-1); HEMATOCRIT 27.4 % (42.0-52.0); LYMPHOCYTES % (AUTO) 3.8 % (21-51); MEAN CORPUSCULAR HEMOGLOBIN 31.5 PG (27.0-31.0); MEAN CORPUSCULAR HGB CONC 32.7 g/dL (33.0-36.5); MEAN CORPUSCULAR VOLUME 96.1 FL (78-98); MEAN PLATELET VOLUME 9.2 FL (7.4-10.4); MONOCYTES % (AUTO) 4.6 % (2-12); NEUTROPHILS # (AUTO) 12.3 X10'3 (1.8-7.7); NEUTROPHILS % (AUTO) 89.5 % (42-75); PLATELET COUNT 60 X10'3 (140-440); RED BLOOD COUNT 2.85 X10'6 (4.70-6.10); RED CELL DISTRIBUTION WIDTH 15.5 % (11.5-14.5)
[2023-05-24 01:14] LABS: ALANINE AMINOTRANSFERASE 28 U/L (12-78); ALBUMIN 1.8 G/DL (3.4-5.0); ALBUMIN/GLOBULIN RATIO 0.7 (1.1-1.5); ALKALINE PHOSPHATASE 50 IU/L (46-116); ANION GAP 8 (8-16); ASPARTATE AMINO TRANSFERASE 33 U/L (10-37); BILIRUBIN,TOTAL 2.3 MG/DL (0.1-1.0); BLOOD UREA NITROGEN 51 MG/DL (7-18); BUN/CREATININE RATIO 36.7 (10.0-20.0); CHLORIDE 120 MMOL/L (99-107); CREATININE 1.39 MG/DL (0.60-1.10); GLUCOSE 211 MG/DL (70-104); MAGNESIUM 1.7 MG/DL (1.5-2.4); PHOSPHORUS 1.9 MG/DL (2.3-4.5); POTASSIUM 3.1 MMOL/L (3.5-5.1); TOTAL CARBON DIOXIDE 31.2 MMOL/L (24-32); TOTAL PROTEIN 4.4 G/DL (6.4-8.2); eCRCL 49 ML/MIN; eGFR 49 ML/MIN
[2023-05-24 01:21] LABS: SODIUM 159 MMOL/L (135-145)
[2023-05-24] MEDS ORDERED: calcium gluconate inj. 2 GM in normal saline 100ml IV soln 100 ML IV PRN (02:00)
[2023-05-24] MEDS ORDERED: Neutra Phos packet PO PRN (02:00)
[2023-05-24] MEDS: CALCIUM GLUC 1gm/50ml NACL,iso 100 ML IV PRN (02:56)
[2023-05-24] MEDS: potassium Cl 20mEq/100mL bag 100 ML IV SCH (02:57)
[2023-05-24] MEDS: potassium Cl 20mEq/100mL bag 100 ML IV ONE (02:57)
[2023-05-24 03:14] LABS: NUCLEATED RED BLOOD CELLS 4 /100WBC (0-0); TOTAL CELLS COUNTED 100
[2023-05-24 03:15] LABS: ANISOCYTOSIS 1+; PLATELET ESTIMATE DECREASED; POLYCHROMASIA FEW
[2023-05-24] MEDS: potassium phosphate inj 15 MMOL in normal saline 250ml IV soln 250 ML IV ONE (03:34)
[2023-05-24] MEDS: MVI, adult No.4 with vit. K 10 ML in dextrose 5% water 500ml 500 ML IV SCH (07:21)
[2023-05-24 07:30] LABS: HEMATOCRIT 27.2 % (42.0-52.0); HEMOGLOBIN 8.7 g/dl (14.0-17.9); MEAN CORPUSCULAR HEMOGLOBIN 31.2 PG (27.0-31.0); MEAN CORPUSCULAR VOLUME 97.8 FL (78-98); MEAN PLATELET VOLUME 9.6 FL (7.4-10.4); PLATELET COUNT 51 X10'3 (140-440); RED BLOOD COUNT 2.78 X10'6 (4.70-6.10); RED CELL DISTRIBUTION WIDTH 15.6 % (11.5-14.5); WHITE BLOOD COUNT 14.2 X10'3 (4.5-11.0)
[2023-05-24 07:56] LABS: CALCIUM 6.8 MG/DL (8.5-10.1); PHOSPHORUS 6.2 MG/DL (2.3-4.5)
[2023-05-24 13:09] LABS: MEAN CORPUSCULAR HEMOGLOBIN 31.5 PG (27.0-31.0); MEAN CORPUSCULAR HGB CONC 32.1 g/dL (33.0-36.5); MEAN CORPUSCULAR VOLUME 98.1 FL (78-98); MEAN PLATELET VOLUME 8.5 FL (7.4-10.4); RED BLOOD COUNT 2.85 X10'6 (4.70-6.10); RED CELL DISTRIBUTION WIDTH 15.9 % (11.5-14.5); WHITE BLOOD COUNT 15.7 X10'3 (4.5-11.0)
[2023-05-24 13:21] LABS: PLATELET COUNT 45 X10'3 (140-440)
[2023-05-24 13:35] LABS: PHOSPHORUS 1.9 MG/DL (2.3-4.5)
[2023-05-24] MEDS: sodium phosphate inj. 15 MMOL in dextrose 5%-water 250 ML IV PRN (14:30)
[2023-05-24] MEDS ORDERED: furosemide 20 MG/2 ML vial IV ONE (15:20)
[2023-05-24] MEDS: dexmedetomidin/NS 400mcg/100ml 100 ML IV PRN (15:22)
[2023-05-24 15:35] LABS: ABG BASE EXCESS 1.2 mmol/L (-2.0-2.0); ABG HCO3 28.7 mmol/L (22.0-26.0); ABG OXYGEN SATURATION 92.2 % (94-97); ABG PCO2 (T) 60.8 mmHg (35.0-48.0); ABG PH (T) 7.292 (7.340-7.440); ABG PO2 (T) 70.1 mmHg (75.0-100.0); ALLEN'S TEST POSITIVE; FCOHb 0.4 % (0.0-3.9); FHHb 7.7 % (0.0-5.0); FMetHb 0.3 % (0.0-1.5); FO2Hb 91.6 % (94-97); MODE MASK - AVAPS; PEEP 6 cm H2O; RESPIRATORY RATE 15 b/min; TIDAL VOLUME 480 mL; TOTAL HEMOGLOBIN 10.8 G/dl (14.0-17.9)
[2023-05-24 15:45] LABS: ALBUMIN 1.8 G/DL (3.4-5.0); ALBUMIN/GLOBULIN RATIO 0.6 (1.1-1.5); ALKALINE PHOSPHATASE 50 IU/L (46-116); ANION GAP 9 (8-16); BILIRUBIN,TOTAL 2.2 MG/DL (0.1-1.0); BLOOD UREA NITROGEN 43 MG/DL (7-18); CHLORIDE 113 MMOL/L (99-107); POTASSIUM 3.1 MMOL/L (3.5-5.1); SODIUM 149 MMOL/L (135-145)
[2023-05-24] MEDS: furosemide 40mg/4ml inj IV ONE (15:47)
[2023-05-24 16:14] LABS: ALANINE AMINOTRANSFERASE 28 U/L (12-78); ASPARTATE AMINO TRANSFERASE 31 U/L (10-37); BUN/CREATININE RATIO 37.1 (10.0-20.0); CALCIUM 6.8 MG/DL (8.5-10.1); CREATININE 1.16 MG/DL (0.60-1.10); GLUCOSE 343 MG/DL (70-104); TOTAL CARBON DIOXIDE 27.1 MMOL/L (24-32); TOTAL PROTEIN 4.7 G/DL (6.4-8.2); eCRCL 59 ML/MIN; eGFR 61 ML/MIN
[2023-05-24 17:42] LABS: ABG BASE EXCESS 1.7 mmol/L (-2.0-2.0); ABG HCO3 29.6 mmol/L (22.0-26.0); ABG OXYGEN SATURATION 92.7 % (94-97); ABG PH (T) 7.277 (7.340-7.440); ABG PO2 (T) 69.5 mmHg (75.0-100.0); ALLEN'S TEST POSITIVE; FCOHb 0.5 % (0.0-3.9); FHHb 7.2 % (0.0-5.0); FMetHb 0.3 % (0.0-1.5); MODE MASK - BIPAP; PATIENT TEMPERATURE 37.3; RESPIRATORY RATE 20 b/min; TOTAL HEMOGLOBIN 10.9 G/dl (14.0-17.9)
[2023-05-24] MEDS ORDERED: furosemide 20 MG/2 ML vial IV SCH (20:00)
[2023-05-24] MEDS: furosemide 40mg/4ml inj IV SCH (20:27)
[2023-05-24] MEDS: VANCOMYCIN 1,500MG in normal saline IV soln 300 ML IV ONE (21:11)
[2023-05-25] VITALS (41 sets, daily range): BP systolic 99–135; BP diastolic 36–51; PULSE 60–75; RESP 12–27; O2SAT 92–98
[2023-05-25] MEDS: albumin (human) 25% 100 ML IV solution IV ONE (03:13)
[2023-05-25 03:49] LABS: ALANINE AMINOTRANSFERASE 35 U/L (12-78); ALBUMIN 1.9 G/DL (3.4-5.0); ALBUMIN/GLOBULIN RATIO 0.6 (1.1-1.5); ALKALINE PHOSPHATASE 57 IU/L (46-116); ANION GAP 5 (8-16); ASPARTATE AMINO TRANSFERASE 38 U/L (10-37); BILIRUBIN,TOTAL 2.6 MG/DL (0.1-1.0); BLOOD UREA NITROGEN 41 MG/DL (7-18); BUN/CREATININE RATIO 36.9 (10.0-20.0); CHLORIDE 114 MMOL/L (99-107); CREATININE 1.11 MG/DL (0.60-1.10); GLUCOSE 115 MG/DL (70-104); MAGNESIUM 1.4 MG/DL (1.5-2.4); PHOSPHORUS 2.6 MG/DL (2.3-4.5); SODIUM 153 MMOL/L (135-145); TOTAL CARBON DIOXIDE 34.1 MMOL/L (24-32); eCRCL 62 ML/MIN; eGFR 64 ML/MIN
[2023-05-25 03:51] LABS: BASOPHILS % (AUTO) 0.1 % (0-1); HEMOGLOBIN 9.5 g/dl (14.0-17.9); LYMPHOCYTES # (AUTO) 0.3 X10'3 (1.1-4.8); MONOCYTES # (AUTO) 0.7 X10'3 (0-0.9); MONOCYTES % (AUTO) 4.1 % (2-12)
[2023-05-25 03:53] LABS: EOSINOPHILS # (AUTO) 0.1 X10'3 (0-0.9); EOSINOPHILS % (AUTO) 0.5 % (0-6); HEMATOCRIT 28.8 % (42.0-52.0); LYMPHOCYTES % (AUTO) 1.9 % (21-51); MEAN CORPUSCULAR HEMOGLOBIN 32.1 PG (27.0-31.0); MEAN CORPUSCULAR VOLUME 97.1 FL (78-98); MEAN PLATELET VOLUME 9.1 FL (7.4-10.4); NEUTROPHILS # (AUTO) 15.6 X10'3 (1.8-7.7); NEUTROPHILS % (AUTO) 93.4 % (42-75); RED BLOOD COUNT 2.97 X10'6 (4.70-6.10); RED CELL DISTRIBUTION WIDTH 15.6 % (11.5-14.5); WHITE BLOOD COUNT 16.8 X10'3 (4.5-11.0)
[2023-05-25 03:58] LABS: POTASSIUM 2.7 MMOL/L (3.5-5.1)
[2023-05-25 04:03] LABS: PLATELET COUNT 40 X10'3 (140-440)
[2023-05-25] MEDS: furosemide 40mg/4ml inj IV SCH ×2 (04:06→13:31)
[2023-05-25 04:45] LABS: PLATELET ESTIMATE DECREASED
[2023-05-25 04:49] LABS: ELLIPTOCYTES FEW
[2023-05-25 04:50] LABS: POLYCHROMASIA FEW
[2023-05-25 09:57] LABS: ABG BASE EXCESS 6.7 mmol/L (-2.0-2.0); ABG HCO3 32.7 mmol/L (22.0-26.0); ABG OXYGEN SATURATION 94.2 % (94-97); ABG PCO2 (T) 55.4 mmHg (35.0-48.0); ABG PH (T) 7.389 (7.340-7.440); ABG PO2 (T) 65.3 mmHg (75.0-100.0); ALLEN'S TEST POSITIVE; FCOHb 0.4 % (0.0-3.9); FHHb 5.8 % (0.0-5.0); FMetHb 0.3 % (0.0-1.5); FO2Hb 93.5 % (94-97); MODE MASK - BIPAP; RESPIRATORY RATE 20 b/min; TOTAL HEMOGLOBIN 9.5 G/dl (14.0-17.9)
[2023-05-25] MEDS: albumin (human) 25% 100ml IV 100 ML IV SCH (12:40)
[2023-05-25] MEDS: diatr meglu/diatrizoate 30ml oral sol.-(3 dose) bottle PO SCH (21:00)
[2023-05-25] MEDS: VANCOMYCIN 1,500MG in normal saline IV soln 300 ML IV ONE (23:21)
[2023-05-26] VITALS (44 sets, daily range): BP systolic 90–135; BP diastolic 36–53; PULSE 60–65; RESP 13–30; O2SAT 90–96
[2023-05-26 02:36] LABS: BASOPHILS % (AUTO) 0.1 % (0-1); EOSINOPHILS # (AUTO) 0.2 X10'3 (0-0.9); EOSINOPHILS % (AUTO) 1.3 % (0-6); HEMATOCRIT 28.4 % (42.0-52.0); HEMOGLOBIN 9.1 g/dl (14.0-17.9); LYMPHOCYTES # (AUTO) 0.2 X10'3 (1.1-4.8); LYMPHOCYTES % (AUTO) 1.8 % (21-51); MEAN CORPUSCULAR HEMOGLOBIN 31.5 PG (27.0-31.0); MEAN CORPUSCULAR HGB CONC 32.1 g/dL (33.0-36.5); MEAN PLATELET VOLUME 9.7 FL (7.4-10.4); MONOCYTES # (AUTO) 0.5 X10'3 (0-0.9); MONOCYTES % (AUTO) 3.8 % (2-12); NEUTROPHILS # (AUTO) 12.2 X10'3 (1.8-7.7); RED BLOOD COUNT 2.89 X10'6 (4.70-6.10); RED CELL DISTRIBUTION WIDTH 15.9 % (11.5-14.5); WHITE BLOOD COUNT 13.1 X10'3 (4.5-11.0)
[2023-05-26 02:47] LABS: APTT 31 SECONDS (22-32); FIBRINOGEN 346 MG/DL (177-424); INR 1.2 INR; PROTHROMBIN TIME 12.4 SECONDS (9.0-12.0)
[2023-05-26 02:57] LABS: PLATELET COUNT 26 X10'3 (140-440)
[2023-05-26 02:58] LABS: ALANINE AMINOTRANSFERASE 40 U/L (12-78); ALBUMIN/GLOBULIN RATIO 0.7 (1.1-1.5); ALKALINE PHOSPHATASE 44 IU/L (46-116); ANION GAP 1 (8-16); ASPARTATE AMINO TRANSFERASE 44 U/L (10-37); BILIRUBIN,TOTAL 2.9 MG/DL (0.1-1.0); BLOOD UREA NITROGEN 38 MG/DL (7-18); BUN/CREATININE RATIO 36.9 (10.0-20.0); CALCIUM 6.8 MG/DL (8.5-10.1); CHLORIDE 115 MMOL/L (99-107); CREATININE 1.03 MG/DL (0.60-1.10); GLUCOSE 112 MG/DL (70-104); MAGNESIUM 1.1 MG/DL (1.5-2.4); PHOSPHORUS 1.3 MG/DL (2.3-4.5); SODIUM 152 MMOL/L (135-145); TOTAL CARBON DIOXIDE 36.2 MMOL/L (24-32); TOTAL PROTEIN 4.7 G/DL (6.4-8.2); eCRCL 67 ML/MIN; eGFR 69 ML/MIN
[2023-05-26 03:06] LABS: POTASSIUM 2.9 MMOL/L (3.5-5.1)
[2023-05-26] MEDS: magnesium 4gm in 100ml NS 100 ML IV PRN (04:50)
[2023-05-26] MEDS: ZINC/COPPER/MANGANESE/SELENIUM 1 ML, chromic chloride inj. 10 MCG in AMINO ACIDS 5 %/DE... IV SCH (08:00)
[2023-05-26] MEDS ORDERED: vancomycin/NS 1 GM ADD-VANTAGE 250 ML IV SCH (12:00)
[2023-05-26] MEDS: VANCOmycin 1250MG/NS 250ml Bag 250 ML IV SCH (12:12)
[2023-05-26] MEDS: albumin (human) 25% 100ml IV 100 ML IV SCH (16:04)
[2023-05-26] MEDS: furosemide 40mg/4ml inj IV SCH (17:02)
[2023-05-27] VITALS (44 sets, daily range): BP systolic 110–167; BP diastolic 38–62; PULSE 59–90; RESP 16–39; O2SAT 90–98
[2023-05-27 02:52] LABS: BASOPHILS % (AUTO) 0.2 % (0-1); EOSINOPHILS # (AUTO) 0.2 X10'3 (0-0.9); EOSINOPHILS % (AUTO) 1.5 % (0-6); HEMOGLOBIN 9.3 g/dl (14.0-17.9); LYMPHOCYTES # (AUTO) 0.3 X10'3 (1.1-4.8); LYMPHOCYTES % (AUTO) 2.4 % (21-51); MEAN CORPUSCULAR HEMOGLOBIN 31.7 PG (27.0-31.0); MEAN CORPUSCULAR VOLUME 98.9 FL (78-98); MEAN PLATELET VOLUME 10.6 FL (7.4-10.4); MONOCYTES # (AUTO) 0.8 X10'3 (0-0.9); MONOCYTES % (AUTO) 5.9 % (2-12); NEUTROPHILS # (AUTO) 12.2 X10'3 (1.8-7.7); RED BLOOD COUNT 2.93 X10'6 (4.70-6.10); RED CELL DISTRIBUTION WIDTH 16.8 % (11.5-14.5); WHITE BLOOD COUNT 13.5 X10'3 (4.5-11.0)
[2023-05-27 03:06] LABS: ALANINE AMINOTRANSFERASE 42 U/L (12-78); ALBUMIN 2.4 G/DL (3.4-5.0); ALBUMIN/GLOBULIN RATIO 0.9 (1.1-1.5); ALKALINE PHOSPHATASE 54 IU/L (46-116); ANION GAP 3 (8-16); ASPARTATE AMINO TRANSFERASE 39 U/L (10-37); BLOOD UREA NITROGEN 42 MG/DL (7-18); BUN/CREATININE RATIO 43.8 (10.0-20.0); CALCIUM 7.2 MG/DL (8.5-10.1); CHLORIDE 115 MMOL/L (99-107); CREATININE 0.96 MG/DL (0.60-1.10); GLUCOSE 89 MG/DL (70-104); MAGNESIUM 1.7 MG/DL (1.5-2.4); PHOSPHORUS 1.4 MG/DL (2.3-4.5); SODIUM 153 MMOL/L (135-145); TOTAL CARBON DIOXIDE 34.7 MMOL/L (24-32); TOTAL PROTEIN 5.1 G/DL (6.4-8.2); eCRCL 71 ML/MIN; eGFR 75 ML/MIN
[2023-05-27 03:19] LABS: PLATELET COUNT 31 X10'3 (140-440)
[2023-05-27 03:27] LABS: POTASSIUM 2.8 MMOL/L (3.5-5.1)
[2023-05-27] MEDS ORDERED: VANCOMYCIN LEVEL IV ONE (11:30)
[2023-05-27] MEDS: vancomycin/NS 1 GM ADD-VANTAGE 250 ML IV SCH (12:22)
[2023-05-27 12:29] LABS: POTASSIUM 3.4 MMOL/L (3.5-5.1); VANCOMYCIN,TROUGH 20.6 ug/mL (10.0-20.0)
[2023-05-27 16:02] LABS: AMYLASE,BODY FLUID 10 U/L; GLUCOSE,BODY FLUID 163 MG/DL; LDH,BODY FLUID 100 U/L
[2023-05-27] MEDS: albumin (human) 25% 100ml IV 100 ML IV SCH (16:06)
[2023-05-27 16:22] LABS: BFAPPEAR HAZY; BFCOLOR YELLOW; BFSOURCE RIGHT PLEURAL FLD
[2023-05-27 16:23] LABS: BF MESOTHELIAL CELLS MODERATE; BF RBC COUNT 1160 /CU MM; BF WBC COUNT 460 /CU MM (0-1000); BFVOLUME 63 ML; LYMPHOCYTES,BODY FLUID 6 %; MONOCYTES,BODY FLUID 8 %; NEUTROPHILS,BODY FLUID 86 %; TOTAL PROTEIN,BODY FLUID < 2.0 G/DL
[2023-05-27 16:41] LABS: BASOPHILS % (AUTO) 0.1 % (0-1); EOSINOPHILS # (AUTO) 0.1 X10'3 (0-0.9); HEMATOCRIT 27.6 % (42.0-52.0); HEMOGLOBIN 8.8 g/dl (14.0-17.9); LYMPHOCYTES # (AUTO) 0.3 X10'3 (1.1-4.8); LYMPHOCYTES % (AUTO) 3.2 % (21-51); MEAN CORPUSCULAR HEMOGLOBIN 31.9 PG (27.0-31.0); MEAN CORPUSCULAR HGB CONC 31.7 g/dL (33.0-36.5); MEAN CORPUSCULAR VOLUME 100.5 FL (78-98); MEAN PLATELET VOLUME 10.2 FL (7.4-10.4); MONOCYTES # (AUTO) 0.6 X10'3 (0-0.9); MONOCYTES % (AUTO) 6.6 % (2-12); NEUTROPHILS # (AUTO) 8.1 X10'3 (1.8-7.7); NEUTROPHILS % (AUTO) 89.1 % (42-75); RED BLOOD COUNT 2.74 X10'6 (4.70-6.10); RED CELL DISTRIBUTION WIDTH 17.4 % (11.5-14.5); WHITE BLOOD COUNT 9.1 X10'3 (4.5-11.0)
[2023-05-27 16:47] LABS: PLATELET COUNT 25 X10'3 (140-440)
[2023-05-27] MEDS ORDERED: furosemide 40mg/4ml inj IV SCH (17:00)
[2023-05-27] MEDS: LORazepam 2 mg/ml vial IV PRN (19:51)
[2023-05-28] VITALS (44 sets, daily range): BP systolic 130–180; BP diastolic 45–80; PULSE 35–92; RESP 13–33; O2SAT 90–99
[2023-05-28 02:19] LABS: BASOPHILS % (AUTO) 0.1 % (0-1); EOSINOPHILS # (AUTO) 0.1 X10'3 (0-0.9); EOSINOPHILS % (AUTO) 1.4 % (0-6); HEMATOCRIT 28.2 % (42.0-52.0); HEMOGLOBIN 8.9 g/dl (14.0-17.9); LYMPHOCYTES # (AUTO) 0.4 X10'3 (1.1-4.8); LYMPHOCYTES % (AUTO) 3.7 % (21-51); MEAN CORPUSCULAR HEMOGLOBIN 32.4 PG (27.0-31.0); MEAN CORPUSCULAR HGB CONC 31.7 g/dL (33.0-36.5); MEAN PLATELET VOLUME 10.8 FL (7.4-10.4); MONOCYTES # (AUTO) 0.8 X10'3 (0-0.9); MONOCYTES % (AUTO) 8.2 % (2-12); NEUTROPHILS # (AUTO) 8.8 X10'3 (1.8-7.7); NEUTROPHILS % (AUTO) 86.6 % (42-75); RED BLOOD COUNT 2.76 X10'6 (4.70-6.10); RED CELL DISTRIBUTION WIDTH 19.2 % (11.5-14.5); WHITE BLOOD COUNT 10.1 X10'3 (4.5-11.0)
[2023-05-28 02:33] LABS: PLATELET COUNT 29 X10'3 (140-440)
[2023-05-28 02:36] LABS: ALANINE AMINOTRANSFERASE 45 U/L (12-78); ALBUMIN 2.6 G/DL (3.4-5.0); ALKALINE PHOSPHATASE 53 IU/L (46-116); ANION GAP 3 (8-16); ASPARTATE AMINO TRANSFERASE 35 U/L (10-37); BILIRUBIN,TOTAL 2.8 MG/DL (0.1-1.0); BLOOD UREA NITROGEN 44 MG/DL (7-18); BUN/CREATININE RATIO 41.5 (10.0-20.0); CALCIUM 7.3 MG/DL (8.5-10.1); CHLORIDE 116 MMOL/L (99-107); CREATININE 1.06 MG/DL (0.60-1.10); GLUCOSE 144 MG/DL (70-104); MAGNESIUM 1.5 MG/DL (1.5-2.4); PHOSPHORUS 1.8 MG/DL (2.3-4.5); POTASSIUM 3.2 MMOL/L (3.5-5.1); TOTAL CARBON DIOXIDE 37.6 MMOL/L (24-32); TOTAL PROTEIN 5.3 G/DL (6.4-8.2); eCRCL 65 ML/MIN; eGFR 67 ML/MIN
[2023-05-28 02:48] LABS: SODIUM 157 MMOL/L (135-145)
[2023-05-28 03:07] LABS: LARGE PLATELETS FEW; PLATELET ESTIMATE DECREASED; POLYCHROMASIA 1+
[2023-05-28 03:08] LABS: ANISOCYTOSIS 2+
[2023-05-28] MEDS: albumin (human) 25% 100ml IV 100 ML IV SCH (07:33)
[2023-05-28] MEDS ORDERED: iohexol 300mg/ml 100ml inj. ONE (13:18)
[2023-05-28] MEDS: MESSAGE TO NURSING PO SCH (14:33)
[2023-05-28] MEDS: pantoprazole 40 MG vial IV SCH (20:04)
[2023-05-29] VITALS (41 sets, daily range): BP systolic 119–175; BP diastolic 20–71; PULSE 60–88; RESP 16–23; O2SAT 91–100
[2023-05-29 03:08] LABS: BASOPHILS % (AUTO) 0.1 % (0-1); EOSINOPHILS # (AUTO) 0.1 X10'3 (0-0.9); HEMATOCRIT 27.2 % (42.0-52.0); HEMOGLOBIN 8.5 g/dl (14.0-17.9); LYMPHOCYTES # (AUTO) 0.3 X10'3 (1.1-4.8); LYMPHOCYTES % (AUTO) 3.5 % (21-51); MEAN CORPUSCULAR HEMOGLOBIN 31.8 PG (27.0-31.0); MEAN CORPUSCULAR HGB CONC 31.4 g/dL (33.0-36.5); MEAN CORPUSCULAR VOLUME 101.3 FL (78-98); MEAN PLATELET VOLUME 9.4 FL (7.4-10.4); MONOCYTES # (AUTO) 0.9 X10'3 (0-0.9); MONOCYTES % (AUTO) 9.6 % (2-12); NEUTROPHILS # (AUTO) 8.2 X10'3 (1.8-7.7); NEUTROPHILS % (AUTO) 85.8 % (42-75); RED BLOOD COUNT 2.68 X10'6 (4.70-6.10); RED CELL DISTRIBUTION WIDTH 18.2 % (11.5-14.5); WHITE BLOOD COUNT 9.6 X10'3 (4.5-11.0)
[2023-05-29 03:13] LABS: PLATELET COUNT 25 X10'3 (140-440)
[2023-05-29 03:22] LABS: ALANINE AMINOTRANSFERASE 38 U/L (12-78); ALBUMIN 2.8 G/DL (3.4-5.0); ALKALINE PHOSPHATASE 56 IU/L (46-116); ANION GAP 3 (8-16); ASPARTATE AMINO TRANSFERASE 27 U/L (10-37); BILIRUBIN,TOTAL 2.9 MG/DL (0.1-1.0); BLOOD UREA NITROGEN 42 MG/DL (7-18); BUN/CREATININE RATIO 43.3 (10.0-20.0); CALCIUM 7.8 MG/DL (8.5-10.1); CHLORIDE 114 MMOL/L (99-107); CREATININE 0.97 MG/DL (0.60-1.10); GLUCOSE 146 MG/DL (70-104); MAGNESIUM 1.3 MG/DL (1.5-2.4); PHOSPHORUS 1.4 MG/DL (2.3-4.5); SODIUM 154 MMOL/L (135-145); TOTAL CARBON DIOXIDE 36.7 MMOL/L (24-32); TOTAL PROTEIN 5.6 G/DL (6.4-8.2); eCRCL 71 ML/MIN; eGFR 74 ML/MIN
[2023-05-29] MEDS ORDERED: sodium phosphate inj. 30 MMOL in dextrose 5%-water 250 ML IV PRN (03:40)
[2023-05-29] MEDS ORDERED: sodium phosphate inj. 15 MMOL in dextrose 5%-water 250 ML IV PRN (03:40)
[2023-05-29] MEDS ORDERED: potassium phosphate inj 30 MMOL in normal saline 250ml IV soln 250 ML IV ONE (03:45)
[2023-05-29] MEDS: potassium phosphate inj 30 MMOL in dextrose 5%-water 250 ML IV ONE (04:39)
[2023-05-29] MEDS: Dextrose 10%-water IV solution 1,000 ML IV PRN (10:00)
[2023-05-29] MEDS: VANCOMYCIN LEVEL IV ONE (12:21)
[2023-05-29 17:17] LABS: POTASSIUM 3.6 MMOL/L (3.5-5.1)
[2023-05-29 20:40] LABS: MAGNESIUM 2.1 MG/DL (1.5-2.4); PHOSPHORUS 3.4 MG/DL (2.3-4.5)
[2023-05-30] VITALS (50 sets, daily range): BP systolic 111–154; BP diastolic 35–66; PULSE 60–85; RESP 13–31; TEMP 98.2–98.9; O2SAT 92–100
[2023-05-30 03:11] LABS: ALANINE AMINOTRANSFERASE 40 U/L (12-78); ALBUMIN 3.1 G/DL (3.4-5.0); ALBUMIN/GLOBULIN RATIO 1.1 (1.1-1.5); ALKALINE PHOSPHATASE 59 IU/L (46-116); ANION GAP 1 (8-16); ASPARTATE AMINO TRANSFERASE 24 U/L (10-37); BILIRUBIN,TOTAL 2.4 MG/DL (0.1-1.0); BLOOD UREA NITROGEN 52 MG/DL (7-18); BUN/CREATININE RATIO 47.7 (10.0-20.0); CALCIUM 7.9 MG/DL (8.5-10.1); CHLORIDE 112 MMOL/L (99-107); CREATININE 1.09 MG/DL (0.60-1.10); GLUCOSE 244 MG/DL (70-104); MAGNESIUM 1.9 MG/DL (1.5-2.4); PHOSPHORUS 2.9 MG/DL (2.3-4.5); POTASSIUM 3.4 MMOL/L (3.5-5.1); PREALBUMIN 14.3 MG/DL (19-36); SODIUM 151 MMOL/L (135-145); TRIGLYCERIDES 86 MG/DL (20-135); eCRCL 63 ML/MIN; eGFR 65 ML/MIN
[2023-05-30 03:26] LABS: BASOPHILS % (AUTO) 0.2 % (0-1); EOSINOPHILS % (AUTO) 0.3 % (0-6); LYMPHOCYTES # (AUTO) 0.2 X10'3 (1.1-4.8); NEUTROPHILS # (AUTO) 7.6 X10'3 (1.8-7.7); RED BLOOD COUNT 2.84 X10'6 (4.70-6.10)
[2023-05-30 03:29] LABS: HEMATOCRIT 29.4 % (42.0-52.0); LYMPHOCYTES % (AUTO) 2.7 % (21-51); MEAN CORPUSCULAR HEMOGLOBIN 31.8 PG (27.0-31.0); MEAN CORPUSCULAR HGB CONC 30.7 g/dL (33.0-36.5); MEAN CORPUSCULAR VOLUME 103.6 FL (78-98); MEAN PLATELET VOLUME 10.1 FL (7.4-10.4); MONOCYTES # (AUTO) 1.1 X10'3 (0-0.9); MONOCYTES % (AUTO) 11.9 % (2-12); NEUTROPHILS % (AUTO) 84.9 % (42-75); RED CELL DISTRIBUTION WIDTH 19.1 % (11.5-14.5)
[2023-05-30 03:36] LABS: PLATELET COUNT 30 X10'3 (140-440)
[2023-05-30 04:37] LABS: ANISOCYTOSIS 2+; PLATELET ESTIMATE DECREASED
[2023-05-30 04:41] LABS: ELLIPTOCYTES FEW; HYPOCHROMASIA 1+; POIKILOCYTOSIS FEW
[2023-05-31] VITALS (39 sets, daily range): BP systolic 130–156; BP diastolic 50–72; PULSE 60–86; RESP 16–34; O2SAT 91–100
[2023-05-31 02:40] LABS: BASOPHILS % (AUTO) 0.3 % (0-1); EOSINOPHILS # (AUTO) 0.1 X10'3 (0-0.9); EOSINOPHILS % (AUTO) 1.9 % (0-6); HEMATOCRIT 27.6 % (42.0-52.0); HEMOGLOBIN 8.5 g/dl (14.0-17.9); LYMPHOCYTES # (AUTO) 0.3 X10'3 (1.1-4.8); LYMPHOCYTES % (AUTO) 3.6 % (21-51); MEAN CORPUSCULAR HEMOGLOBIN 31.8 PG (27.0-31.0); MEAN CORPUSCULAR HGB CONC 30.9 g/dL (33.0-36.5); MEAN CORPUSCULAR VOLUME 103.1 FL (78-98); MEAN PLATELET VOLUME 10.1 FL (7.4-10.4); MONOCYTES % (AUTO) 13.6 % (2-12); NEUTROPHILS # (AUTO) 6.1 X10'3 (1.8-7.7); NEUTROPHILS % (AUTO) 80.6 % (42-75); PLATELET COUNT 67 X10'3 (140-440); RED BLOOD COUNT 2.68 X10'6 (4.70-6.10); WHITE BLOOD COUNT 7.5 X10'3 (4.5-11.0)
[2023-05-31 02:54] LABS: ALANINE AMINOTRANSFERASE 36 U/L (12-78); ALBUMIN 3.3 G/DL (3.4-5.0); ALBUMIN/GLOBULIN RATIO 1.2 (1.1-1.5); ALKALINE PHOSPHATASE 58 IU/L (46-116); ANION GAP 2 (8-16); ASPARTATE AMINO TRANSFERASE 24 U/L (10-37); BILIRUBIN,TOTAL 2.3 MG/DL (0.1-1.0); BLOOD UREA NITROGEN 61 MG/DL (7-18); BUN/CREATININE RATIO 56.5 (10.0-20.0); CALCIUM 8.2 MG/DL (8.5-10.1); CHLORIDE 112 MMOL/L (99-107); CREATININE 1.08 MG/DL (0.60-1.10); GLUCOSE 210 MG/DL (70-104); MAGNESIUM 1.7 MG/DL (1.5-2.4); PHOSPHORUS 1.7 MG/DL (2.3-4.5); POTASSIUM 3.1 MMOL/L (3.5-5.1); SODIUM 154 MMOL/L (135-145); eCRCL 63 ML/MIN; eGFR 66 ML/MIN
[2023-05-31] MEDS: potassium Cl 20mEq/100mL bag 100 ML IV ONE (05:54)
[2023-05-31] MEDS: furosemide 20 MG/2 ML vial IV SCH (20:28)
[2023-06-01] VITALS (39 sets, daily range): BP systolic 115–148; BP diastolic 38–64; PULSE 60–70; RESP 12–35; O2SAT 90–100
[2023-06-01 03:12] LABS: EOSINOPHILS # (AUTO) 0.2 X10'3 (0-0.9); HEMOGLOBIN 8.4 g/dl (14.0-17.9); LYMPHOCYTES # (AUTO) 0.4 X10'3 (1.1-4.8); RED BLOOD COUNT 2.63 X10'6 (4.70-6.10)
[2023-06-01 03:17] LABS: BASOPHILS % (AUTO) 0.4 % (0-1); EOSINOPHILS % (AUTO) 2.3 % (0-6); HEMATOCRIT 26.9 % (42.0-52.0); LYMPHOCYTES % (AUTO) 5.3 % (21-51); MEAN CORPUSCULAR HGB CONC 31.3 g/dL (33.0-36.5); MEAN CORPUSCULAR VOLUME 102.4 FL (78-98); MEAN PLATELET VOLUME 9.8 FL (7.4-10.4); MONOCYTES # (AUTO) 0.9 X10'3 (0-0.9); NEUTROPHILS # (AUTO) 5.6 X10'3 (1.8-7.7); PLATELET COUNT 61 X10'3 (140-440); RED CELL DISTRIBUTION WIDTH 19.2 % (11.5-14.5)
[2023-06-01 03:27] LABS: ALANINE AMINOTRANSFERASE 33 U/L (12-78); ALBUMIN/GLOBULIN RATIO 1.1 (1.1-1.5); ALKALINE PHOSPHATASE 62 IU/L (46-116); ANION GAP 2 (8-16); ASPARTATE AMINO TRANSFERASE 26 U/L (10-37); BILIRUBIN,TOTAL 2.4 MG/DL (0.1-1.0); BLOOD UREA NITROGEN 53 MG/DL (7-18); BUN/CREATININE RATIO 60.2 (10.0-20.0); CALCIUM 8.1 MG/DL (8.5-10.1); CHLORIDE 112 MMOL/L (99-107); CREATININE 0.88 MG/DL (0.60-1.10); GLUCOSE 111 MG/DL (70-104); MAGNESIUM 1.5 MG/DL (1.5-2.4); SODIUM 153 MMOL/L (135-145); TOTAL CARBON DIOXIDE 38.8 MMOL/L (24-32); TOTAL PROTEIN 5.8 G/DL (6.4-8.2); eCRCL 78 ML/MIN; eGFR 83 ML/MIN
[2023-06-01 03:30] LABS: POTASSIUM 2.7 MMOL/L (3.5-5.1)
[2023-06-01] MEDS: sodium phosphate inj. 30 MMOL in dextrose 5%-water 250 ML IV PRN (04:16)
[2023-06-01 07:30] LABS: ANISOCYTOSIS 2+; PLATELET ESTIMATE DECREASED
[2023-06-01 07:31] LABS: POLYCHROMASIA 1+
[2023-06-01 15:29] LABS: ANION GAP 3 (8-16); BLOOD UREA NITROGEN 56 MG/DL (7-18); BUN/CREATININE RATIO 53.8 (10.0-20.0); CALCIUM 8.2 MG/DL (8.5-10.1); CHLORIDE 112 MMOL/L (99-107); CREATININE 1.04 MG/DL (0.60-1.10); GLUCOSE 117 MG/DL (70-104); PHOSPHORUS 2.8 MG/DL (2.3-4.5); POTASSIUM 3.2 MMOL/L (3.5-5.1); SODIUM 152 MMOL/L (135-145); TOTAL CARBON DIOXIDE 37.5 MMOL/L (24-32); eCRCL 66 ML/MIN; eGFR 69 ML/MIN
[2023-06-02] VITALS (36 sets, daily range): BP systolic 117–160; BP diastolic 44–79; PULSE 59–68; RESP 12–30; O2SAT 87–100
[2023-06-02 02:13] LABS: BASOPHILS % (AUTO) 0.5 % (0-1); EOSINOPHILS # (AUTO) 0.2 X10'3 (0-0.9); EOSINOPHILS % (AUTO) 2.5 % (0-6); HEMOGLOBIN 8.8 g/dl (14.0-17.9); LYMPHOCYTES # (AUTO) 0.3 X10'3 (1.1-4.8); LYMPHOCYTES % (AUTO) 4.5 % (21-51); MEAN CORPUSCULAR HEMOGLOBIN 32.2 PG (27.0-31.0); MEAN CORPUSCULAR HGB CONC 31.5 g/dL (33.0-36.5); MEAN CORPUSCULAR VOLUME 102.2 FL (78-98); MEAN PLATELET VOLUME 9.9 FL (7.4-10.4); MONOCYTES # (AUTO) 0.9 X10'3 (0-0.9); MONOCYTES % (AUTO) 12.1 % (2-12); NEUTROPHILS # (AUTO) 6.2 X10'3 (1.8-7.7); NEUTROPHILS % (AUTO) 80.4 % (42-75); PLATELET COUNT 57 X10'3 (140-440); RED BLOOD COUNT 2.74 X10'6 (4.70-6.10); RED CELL DISTRIBUTION WIDTH 20.3 % (11.5-14.5); WHITE BLOOD COUNT 7.7 X10'3 (4.5-11.0)
[2023-06-02 02:17] LABS: ALANINE AMINOTRANSFERASE 41 U/L (12-78); ALBUMIN 2.8 G/DL (3.4-5.0); ALBUMIN/GLOBULIN RATIO 0.9 (1.1-1.5); ALKALINE PHOSPHATASE 79 IU/L (46-116); ANION GAP 7 (8-16); ASPARTATE AMINO TRANSFERASE 40 U/L (10-37); BILIRUBIN,TOTAL 2.8 MG/DL (0.1-1.0); BLOOD UREA NITROGEN 60 MG/DL (7-18); BUN/CREATININE RATIO 57.1 (10.0-20.0); CALCIUM 7.6 MG/DL (8.5-10.1); CHLORIDE 113 MMOL/L (99-107); CREATININE 1.05 MG/DL (0.60-1.10); GLUCOSE 129 MG/DL (70-104); MAGNESIUM 1.6 MG/DL (1.5-2.4); PHOSPHORUS 2.6 MG/DL (2.3-4.5); POTASSIUM 3.5 MMOL/L (3.5-5.1); TOTAL CARBON DIOXIDE 37.8 MMOL/L (24-32); TOTAL PROTEIN 5.8 G/DL (6.4-8.2); eCRCL 65 ML/MIN; eGFR 68 ML/MIN
[2023-06-02 02:20] LABS: SODIUM 158 MMOL/L (135-145)
[2023-06-02] MEDS: dextrose 5%-water 1,000 ML IV SCH (09:17)
[2023-06-02 15:03] LABS: ALBUMIN 2.5 G/DL (3.4-5.0); ANION GAP 6 (8-16); BLOOD UREA NITROGEN 50 MG/DL (7-18); BUN/CREATININE RATIO 45.5 (10.0-20.0); CALCIUM 8.3 MG/DL (8.5-10.1); CHLORIDE 110 MMOL/L (99-107); GLUCOSE 122 MG/DL (70-104); POTASSIUM 3.3 MMOL/L (3.5-5.1); SODIUM 154 MMOL/L (135-145); TOTAL CARBON DIOXIDE 37.7 MMOL/L (24-32); eCRCL 62 ML/MIN; eGFR 64 ML/MIN
[2023-06-03] VITALS (30 sets, daily range): BP systolic 108–137; BP diastolic 34–52; PULSE 58–68; RESP 10–28; TEMP 96.1–97.3; O2SAT 89–99
[2023-06-03 03:07] LABS: ALANINE AMINOTRANSFERASE 38 U/L (12-78); ALBUMIN 2.5 G/DL (3.4-5.0); ALBUMIN/GLOBULIN RATIO 0.8 (1.1-1.5); ALKALINE PHOSPHATASE 76 IU/L (46-116); ANION GAP 5 (8-16); ASPARTATE AMINO TRANSFERASE 31 U/L (10-37); BILIRUBIN,TOTAL 1.9 MG/DL (0.1-1.0); BLOOD UREA NITROGEN 51 MG/DL (7-18); CHLORIDE 106 MMOL/L (99-107); GLUCOSE 242 MG/DL (70-104); MAGNESIUM 1.5 MG/DL (1.5-2.4); PHOSPHORUS 2.6 MG/DL (2.3-4.5); POTASSIUM 3.3 MMOL/L (3.5-5.1); SODIUM 148 MMOL/L (135-145); TOTAL CARBON DIOXIDE 37.2 MMOL/L (24-32); TOTAL PROTEIN 5.5 G/DL (6.4-8.2); eCRCL 69 ML/MIN; eGFR 72 ML/MIN
[2023-06-03 03:09] LABS: EOSINOPHILS # (AUTO) 0.2 X10'3 (0-0.9); HEMOGLOBIN 8.1 g/dl (14.0-17.9); MONOCYTES # (AUTO) 0.8 X10'3 (0-0.9); NEUTROPHILS # (AUTO) 6.3 X10'3 (1.8-7.7); WHITE BLOOD COUNT 7.8 X10'3 (4.5-11.0)
[2023-06-03 03:14] LABS: BASOPHILS % (AUTO) 0.3 % (0-1); EOSINOPHILS % (AUTO) 2.7 % (0-6); HEMATOCRIT 25.3 % (42.0-52.0); LYMPHOCYTES # (AUTO) 0.5 X10'3 (1.1-4.8); LYMPHOCYTES % (AUTO) 6.3 % (21-51); MEAN CORPUSCULAR HEMOGLOBIN 32.7 PG (27.0-31.0); MEAN CORPUSCULAR VOLUME 102.2 FL (78-98); MEAN PLATELET VOLUME 9.4 FL (7.4-10.4); MONOCYTES % (AUTO) 10.2 % (2-12); NEUTROPHILS % (AUTO) 80.5 % (42-75); PLATELET COUNT 52 X10'3 (140-440); RED BLOOD COUNT 2.47 X10'6 (4.70-6.10); RED CELL DISTRIBUTION WIDTH 21.3 % (11.5-14.5)
[2023-06-03 08:44] LABS: ANISOCYTOSIS 3+; GIANT PLATELET FEW; PLATELET ESTIMATE DECREASED
[2023-06-03 08:45] LABS: LARGE PLATELETS FEW
[2023-06-03] MEDS: furosemide 20 MG/2 ML vial IV SCH (08:50)
[2023-06-03] MEDS: HYDROcodone/acetaminophen 10/325mg tab PO PRN (14:20)
[2023-06-03] MEDS: lactose-reduced food (Ensure Enlive) - 237ml bottle PO SCH (18:00)
[2023-06-03] MEDS: insulin Lispro (HumaLOG) vial - multi-dose SQ SCH (19:52)
[2023-06-04] VITALS (7 sets, daily range): BP systolic 102–128; BP diastolic 37–73; PULSE 60–63; RESP 18–26; TEMP 96.8–98.4; O2SAT 89–95
[2023-06-04 05:26] LABS: EOSINOPHILS # (AUTO) 0.2 X10'3 (0-0.9); HEMOGLOBIN 8.6 g/dl (14.0-17.9); LYMPHOCYTES # (AUTO) 0.6 X10'3 (1.1-4.8)
[2023-06-04 05:29] LABS: ALANINE AMINOTRANSFERASE 35 U/L (12-78); ALBUMIN 2.6 G/DL (3.4-5.0); ALBUMIN/GLOBULIN RATIO 0.8 (1.1-1.5); ALKALINE PHOSPHATASE 87 IU/L (46-116); ANION GAP 5 (8-16); ASPARTATE AMINO TRANSFERASE 34 U/L (10-37); BILIRUBIN,TOTAL 2.1 MG/DL (0.1-1.0); BLOOD UREA NITROGEN 49 MG/DL (7-18); CALCIUM 8.6 MG/DL (8.5-10.1); CHLORIDE 107 MMOL/L (99-107); CREATININE 1.09 MG/DL (0.60-1.10); GLUCOSE 98 MG/DL (70-104); MAGNESIUM 1.5 MG/DL (1.5-2.4); PHOSPHORUS 4.3 MG/DL (2.3-4.5); POTASSIUM 4.4 MMOL/L (3.5-5.1); SODIUM 146 MMOL/L (135-145); eCRCL 63 ML/MIN; eGFR 65 ML/MIN
[2023-06-04 05:40] LABS: HEMATOCRIT 27.1 % (42.0-52.0); RED CELL DISTRIBUTION WIDTH 21.5 % (11.5-14.5); WHITE BLOOD COUNT 7.7 X10'3 (4.5-11.0)
[2023-06-04 05:41] LABS: BASOPHILS # (AUTO) 0.1 X10'3 (0-0.2); BASOPHILS % (AUTO) 0.7 % (0-1); EOSINOPHILS % (AUTO) 2.3 % (0-6); LYMPHOCYTES % (AUTO) 7.5 % (21-51); MEAN CORPUSCULAR HEMOGLOBIN 32.3 PG (27.0-31.0); MEAN CORPUSCULAR HGB CONC 31.9 g/dL (33.0-36.5); MEAN CORPUSCULAR VOLUME 101.3 FL (78-98); MEAN PLATELET VOLUME 10.1 FL (7.4-10.4); MONOCYTES # (AUTO) 0.7 X10'3 (0-0.9); MONOCYTES % (AUTO) 9.8 % (2-12); NEUTROPHILS # (AUTO) 6.1 X10'3 (1.8-7.7); NEUTROPHILS % (AUTO) 79.7 % (42-75); RED BLOOD COUNT 2.68 X10'6 (4.70-6.10)
[2023-06-04 05:43] LABS: PLATELET COUNT 65 X10'3 (140-440)
[2023-06-04 06:29] LABS: ANISOCYTOSIS 3+; LARGE PLATELETS FEW; PLATELET ESTIMATE DECREASED
== END 2023-06-04 14:53 | DRG 853 ==
LOC: ER 17:16 → ED HOLD 19:51 → CICU 2S 05-15 10:02 → PCU 3S 05-19 11:57 → CICU 2S 05-19 20:42 → PCU 3S 06-03 15:18
PROVIDERS: ADMIT Internal Medicine; ATTEND Family Medicine
PROC: 02HV33Z Insertion of Infusion Device into Superior Vena Cava, Percutaneous Approach (ICD-10-PCS; 2023-05-14)
PROC: BW211ZZ Computerized Tomography (CT Scan) of Abdomen and Pelvis using Low Osmolar Contrast (ICD-10-PCS; 2023-05-14)
PROC: 0DU707Z Supplement Stomach, Pylorus with Autologous Tissue Substitute, Open Approach (ICD-10-PCS; 2023-05-15)
PROC: 0BH17EZ Insertion of Endotracheal Airway into Trachea, Via Natural or Artificial Opening (ICD-10-PCS; 2023-05-15)
PROC: 5A1945Z Respiratory Ventilation, 24-96 Consecutive Hours (ICD-10-PCS; 2023-05-15)
PROC: 5A09357 Assistance with Respiratory Ventilation, Less than 24 Consecutive Hours, Continuous Positive Airway Pressure (ICD-10-PCS; 2023-05-17)
PROC: 02HV33Z Insertion of Infusion Device into Superior Vena Cava, Percutaneous Approach (ICD-10-PCS; 2023-05-20)
PROC: 5A09357 Assistance with Respiratory Ventilation, Less than 24 Consecutive Hours, Continuous Positive Airway Pressure (ICD-10-PCS; 2023-05-20)
PROC: 04L33DZ Occlusion of Hepatic Artery with Intraluminal Device, Percutaneous Approach (ICD-10-PCS; 2023-05-21)
PROC: B31N1ZZ Fluoroscopy of Other Upper Arteries using Low Osmolar Contrast (ICD-10-PCS; 2023-05-21)
PROC: 30233R1 Transfusion of Nonautologous Platelets into Peripheral Vein, Percutaneous Approach (ICD-10-PCS; 2023-05-21)
PROC: 30233M1 Transfusion of Nonautologous Plasma Cryoprecipitate into Peripheral Vein, Percutaneous Approach (ICD-10-PCS; 2023-05-21)
PROC: 5A09357 Assistance with Respiratory Ventilation, Less than 24 Consecutive Hours, Continuous Positive Airway Pressure (ICD-10-PCS; 2023-05-21)
PROC: 30233N1 Transfusion of Nonautologous Red Blood Cells into Peripheral Vein, Percutaneous Approach (ICD-10-PCS; principal; 2023-05-22)
PROC: 3E0G8GC Introduction of Other Therapeutic Substance into Upper GI, Via Natural or Artificial Opening Endoscopic (ICD-10-PCS; 2023-05-22)
PROC: 05HC33Z Insertion of Infusion Device into Left Basilic Vein, Percutaneous Approach (ICD-10-PCS; 2023-05-22)
PROC: 30233K1 Transfusion of Nonautologous Frozen Plasma into Peripheral Vein, Percutaneous Approach (ICD-10-PCS; 2023-05-22)
PROC: 5A09357 Assistance with Respiratory Ventilation, Less than 24 Consecutive Hours, Continuous Positive Airway Pressure (ICD-10-PCS; 2023-05-22)
PROC: 5A09357 Assistance with Respiratory Ventilation, Less than 24 Consecutive Hours, Continuous Positive Airway Pressure (ICD-10-PCS; 2023-05-23)
PROC: 5A09557 Assistance with Respiratory Ventilation, Greater than 96 Consecutive Hours, Continuous Positive Airway Pressure (ICD-10-PCS; 2023-05-24)
PROC: 0W993ZZ Drainage of Right Pleural Cavity, Percutaneous Approach (ICD-10-PCS; 2023-05-27)
PROC: BW251ZZ Computerized Tomography (CT Scan) of Chest, Abdomen and Pelvis using Low Osmolar Contrast (ICD-10-PCS; 2023-05-28)
PROC: 02HV33Z Insertion of Infusion Device into Superior Vena Cava, Percutaneous Approach (ICD-10-PCS; 2023-05-29)
PROC: 5A09457 Assistance with Respiratory Ventilation, 24-96 Consecutive Hours, Continuous Positive Airway Pressure (ICD-10-PCS; 2023-05-29)
PROC: 5A09357 Assistance with Respiratory Ventilation, Less than 24 Consecutive Hours, Continuous Positive Airway Pressure (ICD-10-PCS; 2023-05-31)
PROC: 5A0935A Assistance with Respiratory Ventilation, Less than 24 Consecutive Hours, High Flow/Velocity Cannula (ICD-10-PCS; 2023-05-31)
PROC: 5A09457 Assistance with Respiratory Ventilation, 24-96 Consecutive Hours, Continuous Positive Airway Pressure (ICD-10-PCS; 2023-06-01)
PROC: 5A0935A Assistance with Respiratory Ventilation, Less than 24 Consecutive Hours, High Flow/Velocity Cannula (ICD-10-PCS; 2023-06-01)
PROC: 5A0935A Assistance with Respiratory Ventilation, Less than 24 Consecutive Hours, High Flow/Velocity Cannula (ICD-10-PCS; 2023-06-01)
PROC: 5A0935A Assistance with Respiratory Ventilation, Less than 24 Consecutive Hours, High Flow/Velocity Cannula (ICD-10-PCS; 2023-06-02)
PROC: 5A0935A Assistance with Respiratory Ventilation, Less than 24 Consecutive Hours, High Flow/Velocity Cannula (ICD-10-PCS; 2023-06-02)
PROC: 5A09457 Assistance with Respiratory Ventilation, 24-96 Consecutive Hours, Continuous Positive Airway Pressure (ICD-10-PCS; 2023-06-03)
DX: A41.81 Sepsis due to Enterococcus (principal); G93.41 Metabolic encephalopathy; R65.21 Severe sepsis with septic shock; K26.2 Acute duodenal ulcer with both hemorrhage and perforation; N17.0 Acute kidney failure with tubular necrosis; R57.1 Hypovolemic shock; J96.02 Acute respiratory failure with hypercapnia; J96.01 Acute respiratory failure with hypoxia; K65.9 Peritonitis, unspecified; I50.33 Acute on chronic diastolic (congestive) heart failure; K25.6 Chronic or unspecified gastric ulcer with both hemorrhage and perforation; K26.0 Acute duodenal ulcer with hemorrhage; K57.33 Diverticulitis of large intestine without perforation or abscess with bleeding; D62 Acute posthemorrhagic anemia; I48.20 Chronic atrial fibrillation, unspecified; D68.9 Coagulation defect, unspecified; E87.0 Hyperosmolality and hypernatremia; I95.9 Hypotension, unspecified; D69.6 Thrombocytopenia, unspecified; E87.6 Hypokalemia; E11.22 Type 2 diabetes mellitus with diabetic chronic kidney disease; E11.40 Type 2 diabetes mellitus with diabetic neuropathy, unspecified; K81.9 Cholecystitis, unspecified; I25.10 Atherosclerotic heart disease of native coronary artery without angina pectoris; N18.30 Chronic kidney disease, stage 3 unspecified; I11.0 Hypertensive heart disease with heart failure; I35.0 Nonrheumatic aortic (valve) stenosis; I27.20 Pulmonary hypertension, unspecified; K22.89 Other specified disease of esophagus; K22.2 Esophageal obstruction; J44.9 Chronic obstructive pulmonary disease, unspecified; K44.9 Diaphragmatic hernia without obstruction or gangrene; M54.9 Dorsalgia, unspecified; E66.9 Obesity, unspecified; Z79.01 Long term (current) use of anticoagulants; Z79.82 Long term (current) use of aspirin; Z79.899 Other long term (current) drug therapy; Z95.0 Presence of cardiac pacemaker; Z95.2 Presence of prosthetic heart valve; Z95.1 Presence of aortocoronary bypass graft; Z87.891 Personal history of nicotine dependence; Z68.36 Body mass index [BMI] 36.0-36.9, adult
CPT/HCPCS: 32555; 32557; 36410; 36415; 36430; 36569; 36600; 37244; 43227; 43236; 43255; 71045; 71260; 74176; 74177; 76604; 76937; 76942; 80048; 80053; 80202; 82150; 82272; 82310; 82803; 82945; 82948; 83605; 83615; 83735; 83880; 84100; 84132; 84134; 84145; 84157; 84478; 84484; 85007; 85008; 85018; 85025; 85027; 85384; 85610; 85730; 86885; 86900; 86901; 86920; 87040; 87070; 87075; 87077; 87102; 87186; 88108; 88305; 89051; 92508; 92616; 93005; 93308; 94002; 94003; 94640; 94660; 94760; 97110; 97161; 97530; 99152; 99285; A4333; A4615; A4618; A4620; A4649; A5200; A6196; A6213; A6250; A6253; A6258; A6402; A6407; A6446; A6449; A7000; C1751; C1758; C1760; C1769; C1894; C9113; G0378; J0171; J0610; J1170; J1200; J1450; J1610; J1644; J1815; J1940; J2060; J2175; J2250; J2270; J2370; J2543; J2704; J2710; J3010; J3370; J3475; J3480; J3490; J7030; J7040; J7042; J7050; J7060; J7070; J7120; J7168; P9012; P9016; P9035; P9047; P9059; Q9967

== ENCOUNTER 2023-05-30 11:15 | Outpatient (CLI) | payer MEDICARE, MEDICAID ==
[~2023-05-30 11:15] MED LIST changes: +ASPI-1265 PO; -ASPI81TA53 PO; -FURO-150 PO; +FURO20TA4 PO
[2023-05-30] MEDS ORDERED: LIDOcaine 1% 30ml preserv. free vial ONE (16:16)
== END 2023-05-30 23:59 | disposition home or self-care (01) ==
LOC: TAVR 11:15
PROVIDERS: ATTEND Internal Medicine Cardiovascular Disease
DX: I35.0 Nonrheumatic aortic (valve) stenosis (principal); R06.02 Shortness of breath; I65.29 Occlusion and stenosis of unspecified carotid artery; K92.2 Gastrointestinal hemorrhage, unspecified; G47.30 Sleep apnea, unspecified; Z95.2 Presence of prosthetic heart valve
CPT/HCPCS: 76604; A4421; A6258; C1729; J3490